=== PATIENT | female | born 1940 | race Caucasian/White ===

== ENCOUNTER 2018-04-28 09:06 | Day surgery (SDC) | payer OTHER, MEDICARE ==
[2018-04-28] MEDS ORDERED: BUPIVACAINE 0.25% PF 10 ML VIAL ONE (09:33)
[2018-04-28] MEDS ORDERED: CYCLOPENTOLATE 1% OPTH 2 ML ONE (09:33)
[2018-04-28] MEDS ORDERED: TETRACAINE HCL 0.5% 2ML OPTH ONE (09:33)
[2018-04-28] MEDS ORDERED: LIDOCAINE 2% MPF 5 ML VIAL ONE ×2 (09:33→10:53)
[2018-04-28] MEDS ORDERED: NA CHLORIDE 0.9% 500 ML ONE (09:33)
[2018-04-28] MEDS ORDERED: PHENYLEPHRINE 10% OPTH 5ML ONE (09:34)
[2018-04-28] MEDS ORDERED: BALANCED SALT IRRIG PLAIN 500 ML BTL IRR ONE (09:38)
[2018-04-28] MEDS ORDERED: EPINEPHRINE/PF 1 MG/ML AMP ONE ×2 (09:38→09:39)
[2018-04-28] MEDS ORDERED: NS 0.9% VIAL 10 ML ONE (09:38)
[2018-04-28] MEDS ORDERED: DUOVISC 1 KIT OPTH ONE (09:39)
[2018-04-28] MEDS ORDERED: MOXIFLOXACIN HCL 10 DROPS/ML **OR USE OPTH ONE (09:39)
[2018-04-28] MEDS ORDERED: CYCLOPENTOLATE 1% OPTH 2 ML OPTH ONE ×2 (09:42→09:47)
[2018-04-28] MEDS ORDERED: PHENYLEPHRINE 10% OPTH 5ML OPTH ONE ×2 (09:42→09:47)
[2018-04-28] MEDS ORDERED: PROPOFOL 200 MG/20 ML VIAL IV ONE (10:52)
[2018-04-28] MEDS ORDERED: FENTANYL CITR 100 MCG/2 ML ONE (10:52)
[2018-04-28] MEDS ORDERED: MIDAZOLAM HCL 2 MG/2 ML INJ ONE (10:53)
[2018-04-28] MEDS ORDERED: DEXAMETHASONE 10 MG/ML VIAL ONE (11:29)
[2018-04-28] MEDS ORDERED: ALBUTEROL INHALER 60 PUFF/8 GM IH ONE (11:29)
[2018-04-28] MEDS ORDERED: ONDANSETRON HCL 40 MG/20 ML VIAL ONE (11:30)
[2018-04-28] MEDS ORDERED: EPHEDRINE SULF 50 MG/10 ML SYR ONE (11:39)
--- NOTE | 2018-04-28 12:00 | P.BOP ---
Preoperative diagnosis: Nuclear sclerotic and cortical cataract OS Postoperative diagnosis: Same Primary procedure: Phacoemulsification with IOL OS Anesthesia: General Complications: None Implants: [id number] +24.5 Transferred to: Recovery Room Condition: Good
[2018-04-28] MEDS ORDERED: IPRATROPIUM BROM 0.5MG/2.5ML ONE (12:21)
[2018-04-28] MEDS ORDERED: ALBUTEROL 2.5 MG/3 ML NEB SOL ONE (12:21)
[2018-04-28] MEDS ORDERED: SUCCINYLCHOLINE 20 MG/ML (10 ML) IV ONE (13:36)
--- NOTE | 2018-04-28 22:18 | OP ---
Date of Procedure: 04/28/2018 Surgeon: Emma Kim MD Anesthesiologist: 1. Gsu Briscoe CRNA. 2. Cheng Brower M.D. Preoperative Diagnosis: Nuclear sclerotic and cortical cataract, left eye. Operation Performed: Phacoemulsification with intraocular lens implant, left eye. Anesthesia: General. Complications: None. Description Of Procedure: In the operating room the patient was prepped and draped in the usual sterile fashion for ophthalmic surgery. A lid speculum was placed in the left eye. Two paracentesis sites were made superiorly and inferiorly in the limbal cornea. Viscoat was placed in the anterior chamber and a crescent blade was used to make a corneal groove and tunnel, and a keratome was used to enter the anterior chamber. Provisc was placed in the anterior chamber and a 360 degree capsulotomy was performed with a cystitome. The lens was hydrodissected with BSS and rotated freely. The lens was removed with a stop and chop technique. A 4.44 phaco CDE was used to remove the lens. Residual cortex was removed with the irrigation and aspiration. Provisc was placed in the capsular bag. A ZCB00 +24.5 lens was placed in the capsular bag without complications. Irrigation and aspiration was used to remove residual viscoelastic. The paracentesis sites were hydrated with BSS. The wound and paracentesis sites were inspected and found to be watertight. Vigamox 0.07 cc was placed intracamerally at the end of the procedure. The eye was irrigated with balanced salt solution. The eye was patched with a soft cotton patch and Honeycutt metal shield. The patient was returned to day surgery in good condition. Comments: A 1:5000 epinephrine was placed in the eye prior to Viscoat and throughout the operation. The patient could not lie flat for the block and the surgery was performed under general anesthesia. Atrial Fibrillation was noted at the induction of anesthesia; however, since she is hemodynamically stable, anesthesia did not think it was necessary to cancel the case; she will see Cardiology this week. Discharge Instructions: Ms. Martinez is discharged to home in good condition. She is to follow up with Dr. Kim at 3 today and then in the a.m. VENUS/AFSANEH Voice ID: [id number] Report ID: [id number] MTDD
== END 2018-04-28 14:20 | disposition home or self-care (01) ==
LOC: OR 09:06
PROVIDERS: ATTEND Ophthalmology Retina Specialist
PROC: 08RK3JZ Replacement of Left Lens with Synthetic Substitute, Percutaneous Approach (ICD-10-PCS; principal; 2018-04-28 10:00)
DX: H25.12 Age-related nuclear cataract, left eye (principal); H25.012 Cortical age-related cataract, left eye; I10 Essential (primary) hypertension; K21.9 Gastro-esophageal reflux disease without esophagitis; G30.9 Alzheimer's disease, unspecified; F02.80 Dementia in other diseases classified elsewhere, unspecified severity, without behavioral disturbance, psychotic disturbance, mood disturbance, and anxiety; E07.9 Disorder of thyroid, unspecified
CPT/HCPCS: 36415; 84132; 94640; J0171; J0330; J1100; J2250; J2405; J2704; J3010

== ENCOUNTER 2018-04-29 20:18 | Inpatient (IN) | payer OTHER, MEDICARE ==
[2018-04-29] MEDS ORDERED: EPINEPHRINE INH 0.5 ML VIAL IH ONE (21:02)
[2018-04-29 21:26] LABS: Absolute Lymphocytes (CBC) 1.3 K/uL (0.7-4.9); Absolute Monocytes 1.2 K/uL (0.1-1.3); Absolute Neutrophil 10.2 K/uL (1.8-8.0); Basophils % 0.4 % (0-1.3); Eosinophils % 0.2 % (0-4.4); Lymphocytes % 10.1 % (15.3-44.8); MCH 25.6 pg (27.0-35.0); MCV 82.3 fL (80-100); MPV 7.6 fL (7.6-11.3); Monocytes % 9.6 % (3.3-12.3); RBC Red Blood Cell Count 5.47 M/uL (3.86-4.86)
--- NOTE | 2018-04-29 21:28 | RAD REPORT ---
EXAM DESCRIPTION: RAD - Chest Single View - 04/29/2018 9:16 pm CLINICAL HISTORY: COPD Chest pain. COMPARISON: Chest Single View dated 05/17/2016; Chest Single View dated 05/16/2016; Chest Single Vie w dated 10/29/2015; Chest Single View dated 10/26/2015 FINDINGS: Portable technique limits examination quality. The lungs are grossly clear. The heart is mildly prominent size. No displaced fractures. IMPRESSION: No acute intrathoracic process suspected.
[2018-04-29] MEDS ORDERED: LIDOCAINE VISCOUS 2% SOLN 15 ML UDC ONE (21:29)
[2018-04-29] MEDS ORDERED: MAGNE/ALUM HYDROXD 30 ML UCUP ONE (21:29)
[2018-04-29 21:30] LABS: Protime INR 1.03
[2018-04-29 22:17] LABS: Albumin 3.6 g/dL (3.4-5.0); Bilirubin Direct 0.2 mg/dL (0-0.2); Bilirubin Total 0.5 mg/dL (0.2-1.0); Magnesium 2.6 mg/dL (1.8-2.4); Potassium 3.6 mmol/L (3.5-5.1); Protein, Total 8.4 g/dL (6.4-8.2); Troponin (Emerg Dept Use Only) 1.15 ng/mL (0.0-0.045)
[2018-04-29 22:20] LABS: CKMB Creatine Kinase MB 10.4 ng/mL (0.3-3.6)
--- NOTE | 2018-04-29 22:57 | EDPHYS ---
Physician Documentation [facility] Name: Viki Martinez Age: 78 yrs Sex: Female : 1940 Arrival Date: 04/29/2018 Time: 20:19 Bed 7 Private MD: Travis Magallanes C ED Physician Monica Styles HPI: 04/29 20:50 This 78 yrs old Female presents to ER via Wheelchair with complaints of ma2 Breathing Difficulty. 20:50 The patient has shortness of breath at rest. Onset: The symptoms/episode began/occurred ma2 suddenly, gradually, 1 day(s) ago. The patient's shortness of breath has no apparent modifying factors. Severity of symptoms: At their worst the symptoms were severe in the emergency department the symptoms are unchanged. The patient has not experienced similar symptoms in the past. was intubated yesterday for cataract surgery, was found today by family cyanotic with saturation of 70, here in the ed has throat discomfort, cough and low saturations . Historical: - Allergies: 20:23 Sulfa (Sulfonamide Antibiotics); aj1 - PMHx: 20:23 Alzheimers; Hyperlipidemia; Hypertension; aj1 - Immunization history:: Flu vaccine is up to date. - Social history:: Smoking status: Patient/guardian denies using tobacco, Patient/guardian denies using alcohol, street drugs, The patient lives with family. - Ebola Screening: : Patient denies travel to an Ebola-affected area in the 21 days before illness onset. - Family history:: not pertinent. - Hospitalizations: : No recent hospitalization is reported. ROS: 20:50 Constitutional: Negative for fever, chills, and weight loss. ma2 20:50 ENT: Positive for sore throat, Negative for injury or acute deformity, foreign body sensation, hearing loss. 20:50 Respiratory: Positive for shortness of breath, Negative for dyspnea on exertion, orthopnea, pleurisy, acute changes. 20:50 All other systems are negative. Exam: 20:50 Constitutional: This is a well developed, well nourished patient who is awake, alert, ma2 and in no acute distress. Neck: Trachea midline, no thyromegaly or masses palpated, and no cervical lymphadenopathy. Supple, full range of motion without nuchal rigidity, or vertebral point tenderness. No Meningismus. Chest/axilla: Normal chest wall appearance and motion. Nontender with no deformity. No lesions are appreciated. Cardiovascular: Regular rate and rhythm with a normal S1 and S2. No gallops, murmurs, or rubs. Normal PMI, no JVD. No pulse deficits. Abdomen/GI: Soft, non-tender, with normal bowel sounds. No distension or tympany. No guarding or rebound. No evidence of tenderness throughout. Neuro: Awake and alert, GCS 15, oriented to person, place, time, and situation. Cranial nerves II-XII grossly intact. Motor strength 5/5 in all extremities. Sensory grossly intact. Cerebellar exam normal. Normal gait. Psych: Awake, alert, with orientation to person, place and time. Behavior, mood, and affect are within normal limits. 20:50 Respiratory: mild respiratory distress is noted, on 2 L NC, Breath sounds: are clear throughout. Vital Signs: 20:20 BP 130 / 79; Pulse 72; Resp 24; Temp 97.2; Pulse Ox 70% on R/A; Weight 129.27 kg (R); aj1 Height 5 ft. 6 in. (167.64 cm) (R); 20:22 Pulse Ox 85% on R/A; aj1 20:27 Pulse Ox 95% on 3 lpm NC; aj1 21:31 BP 134 / 90; Pulse 71; Resp 18; Pulse Ox 94% on 3 lpm NC; Pain 0/10; aa1 22:30 BP 126 / 89; Pulse 68; Resp 20; Pulse Ox 95% on 3 lpm NC; Pain 0/10; aa1 04/30 00:23 BP 127 / 72; Pulse 69; Resp 20; Temp 97.1; Pulse Ox 94% on 3 lpm NC; Pain 0/10; aa1 04/29 20:20 Body Mass Index 46.00 (129.27 kg, 167.64 cm) aj1 04/29 20:22 see triage note aj1 MDM: 20:30 Patient medically screened. ma2 20:52 Differential diagnosis: Anxiety Reaction asthma, Bronchitis Pulmonary Embolism. tn2 22:53 Data reviewed: vital signs. Data interpreted: Pulse oximetry: on room air is 95 %. pm1 Interpretation: normal. 22:53 Physician consultation: A Sona BURT was called at 22:50, was contacted at 22:53, pm1 regarding admission, patient's condition, and will see patient tomorrow, would like consultation with Cardiology consult, would like further tests performed, echocardiogram, would like medications started, Lovenox 100 mg daily. 04/29 20:49 Order name: Blood Culture Adult (2) ma2 04/29 20:49 Order name: BMP; Complete Time: 22:22 ma2 04/29 20:49 Order name: CBC with Diff; Complete Time: 21:43 ma2 04/29 20:49 Order name: Ckmb; Complete Time: 22:22 ma2 04/29 20:49 Order name: CPK; Complete Time: 22:22 ma2 04/29 20:49 Order name: D-Dimer; Complete Time: 21:43 ma2 04/29 20:49 Order name: XRAY CXR (1 view); Complete Time: 21:33 ma2 04/29 20:49 Order name: Hepatic Function; Complete Time: 22:22 ma2 04/29 20:49 Order name: Lipase; Complete Time: 22:22 ma2 04/29 20:49 Order name: Magnesium; Complete Time: 22:22 ma2 04/29 20:49 Order name: NT PRO-BNP; Complete Time: 22:22 ma2 04/29 20:49 Order name: PT-INR; Complete Time: 21:43 ma2 04/29 20:49 Order name: Ptt, Activated; Complete Time: 21:43 2 04/29 20:49 Order name: Troponin (emerg Dept Use Only); Complete Time: 22:22 ma2 04/29 20:49 Order name: EKG; Complete Time: 20:50 ma2 04/29 20:49 Order name: Cardiac monitoring; Complete Time: 20:54 ma2 04/29 20:49 Order name: EKG - Nurse/Tech; Complete Time: 20:54 ma2 04/29 20:49 Order name: IV Saline Lock; Complete Time: 21:15 2 04/29 20:49 Order name: Labs collected and sent; Complete Time: 21:15 ma2 04/29 20:49 Order name: O2 Per Protocol; Complete Time: 20:53 ma2 04/29 20:49 Order name: O2 Sat Monitoring; Complete Time: 20:53 ma2 04/29 21:42 Order name: CT Chest For PE Angio ma2 Administered Medications: 20:55 Drug: Racemic EPINPHrine 0.5 ml Route: Inhalation; aa1 21:33 Drug: GI Cocktail without - (Maalox Suspension 30 ml, Lidocaine Liquid 2 % 15 aa1 ml) Route: PO; 22:30 Follow up: Response: No adverse reaction; Marked relief of symptoms aa1 22:52 CANCELLED (Sona would like 100mg subq now): Lovenox 0.5 mg/kg Sub-Q once pm1 23:08 Drug: Lovenox 100 mg Route: Sub-Q; Site: right lower abdomen; aa1 04/30 00:22 Follow up: Response: No adverse reaction aa1 04/29 23:08 Drug: Aspirin 325 mg Route: PO; aa1 04/30 00:21 Follow up: Response: No adverse reaction aa1 Disposition: 04/29/18 22:56 Hospitalization ordered by Travis Magallanes for Inpatient Admission. Preliminary diagnosis is Non-ST elevation (NSTEMI) myocardial infarction. - Bed requested for Telemetry/MedSurg (Inpatient). - Status is Inpatient Admission. aa1 - Condition is Stable. - Problem is new. - Symptoms have improved. UTI on Admission? No Addendum: 05/12/2018 11:10 Co-signature as Attending Physician, Monica Styles MD. m a2 Signatures: Dispatcher [employer] EDMS Silke John RN RN aj1 Viki Quintanilla RN RN mw Mary Dobbs RN RN aa1 Mario Torres, UNIVERSITY MANAGER UNIVERSITY MANAGER pm1 Monica Styles MD MD tn2 Corrections: (The following items were deleted from the chart) 04/29 22:52 22:43 Lovenox 0.5 mg/kg Sub-Q once ordered. pm1 pm1 04/30 00:04 04/29 22:56 Hospitalization Ordered by A Sona BURT for Inpatient Admission. Preliminary mw diagnosis is Non-ST elevation (NSTEMI) myocardial infarction. Bed requested for Telemetry/MedSurg (Inpatient). Status is Inpatient Admission. Condition is Stable. Problem is new. Symptoms have improved. UTI on Admission? No. pm1 04/30 00:27 00:04 04/29/2018 22:56 Hospitalization Ordered by A Sona BURT for Inpatient Admission. aa1 Preliminary diagnosis is Non-ST elevation (NSTEMI) myocardial infarction. Bed requested for Telemetry/MedSurg (Inpatient). Status is Inpatient Admission. Condition is Stable. Problem is new. Symptoms have improved. UTI on Admission? No. mw
--- NOTE | 2018-04-29 22:57 | ER ---
Nurse's Notes [facility] Name: Viki Martinez Age: 78 yrs Sex: Female : 1940 Arrival Date: 04/29/2018 Time: 20:19 Bed 7 Private MD: Travis Magallanes C Diagnosis: Non-ST elevation (NSTEMI) myocardial infarction Presentation: 04/29 20:20 Presenting complaint: Child states: She had cataract surgery yesterday. She had AFib aj1 during surgery and her sats dropped into the 80's today at home she wasn't as alert as it usually is so we checked her oxygen saturation and it was in the 70's. Transition of care: patient was not received from another setting of care. Onset of symptoms was April 29, 2018. Risk Assessment: Do you want to hurt yourself or someone else? Patient reports no desire to harm self or others. Initial Sepsis Screen: Does the patient meet any 2 criteria? No. Patient's initial sepsis screen is negative. Does the patient have a suspected source of infection? Yes: Other: shortness of breath. Care prior to arrival: None. 20:20 Method Of Arrival: Wheelchair aj1 20:20 Acuity: ADIEL 2 aj1 20:37 Note Patient 70% on RA in triage, fingers noted to cool to the touch and purple. aj1 Patient taken back to room 7, pulse ox placed across forehead, room air O2 sat was 85% on room air at that time. Patient was placed on 3L nc, O2 sat was up to 95% on 3L nc. Dr. Styles at bedside. Triage Assessment: 20:20 General: Appears in no apparent distress. uncomfortable, Behavior is calm, cooperative, aj1 appropriate for age. Pain: Denies pain. Neuro: Level of Consciousness is awake, alert, confused, Patient has history of Alzheimers. Speech Family states patient's speech sounds more hoarse than normal. Cardiovascular: Patient's skin is warm and dry. Respiratory: Reports shortness of breath Airway is patent Respiratory effort is even, Respiratory pattern is regular, tachypnea Breath sounds are clear bilaterally. Onset: The symptoms/episode began/occurred just prior to arrival. Historical: - Allergies: 20:23 Sulfa (Sulfonamide Antibiotics); aj1 - PMHx: 20:23 Alzheimers; Hyperlipidemia; Hypertension; aj1 - Immunization history:: Flu vaccine is up to date. - Social history:: Smoking status: Patient/guardian denies using tobacco, Patient/guardian denies using alcohol, street drugs, The patient lives with family. - Ebola Screening: : Patient denies travel to an Ebola-affected area in the 21 days before illness onset. - Family history:: not pertinent. - Hospitalizations: : No recent hospitalization is reported. Screenin:45 Abuse screen: Denies threats or abuse. Denies injuries from another. Nutritional aa1 screening: No deficits noted. Tuberculosis screening: No symptoms or risk factors identified. Fall Risk None identified. Assessment: 20:45 General: Appears in no apparent distress. comfortable, obese, Behavior is calm, aa1 cooperative, appropriate for age. Pain: Denies pain. Neuro: Level of Consciousness is awake, alert, obeys commands, Oriented to person, place, pt has hx of Alzheimer's. Cardiovascular: Denies chest pain, palpitations, shortness of breath, Heart tones S1 S2 present Capillary refill < 3 seconds Clubbing of nail beds is absent JVD is absent Patient's skin is warm and dry. Rhythm is irregular. Respiratory: Airway is patent Respiratory effort is even, unlabored, Respiratory pattern is regular, symmetrical, Breath sounds are clear bilaterally. GI: No signs and/or symptoms were reported involving the gastrointestinal system. : No signs and/or symptoms were reported regarding the genitourinary system. EENT: Reports pain when swallowing. Derm: Skin is intact, is healthy with good turgor, Skin is pink, warm \T\ dry. Musculoskeletal: Circulation, motion, and sensation intact. Capillary refill < 3 seconds. 21:30 Reassessment: Patient appears in no apparent distress at this time. No changes from aa1 previously documented assessment. Patient and/or family updated on plan of care and expected duration. Pain level reassessed. Awaiting lab results. 22:30 Reassessment: Patient appears in no apparent distress at this time. No changes from aa1 previously documented assessment. Patient and/or family updated on plan of care and expected duration. Pain level reassessed. Awaiting provider reassessment. 04/30 00:01 Reassessment: Assisted patient to bedside commode. lp1 00:26 Reassessment: Patient appears in no apparent distress at this time. No changes from aa1 previously documented assessment. Report given to MELISSA Angel on 4th floor. Vital Signs: 04/29 20:20 BP 130 / 79; Pulse 72; Resp 24; Temp 97.2; Pulse Ox 70% on R/A; Weight 129.27 kg (R); aj1 Height 5 ft. 6 in. (167.64 cm) (R); 20:22 Pulse Ox 85% on R/A; aj1 20:27 Pulse Ox 95% on 3 lpm NC; aj1 21:31 BP 134 / 90; Pulse 71; Resp 18; Pulse Ox 94% on 3 lpm NC; Pain 0/10; aa1 22:30 BP 126 / 89; Pulse 68; Resp 20; Pulse Ox 95% on 3 lpm NC; Pain 0/10; aa1 04/30 00:23 BP 127 / 72; Pulse 69; Resp 20; Temp 97.1; Pulse Ox 94% on 3 lpm NC; Pain 0/10; aa1 04/29 20:20 Body Mass Index 46.00 (129.27 kg, 167.64 cm) aj1 04/29 20:22 see triage note aj1 ED Course: 20:19 Patient arrived in ED. ds1 20:19 Travis Magallanes MD is Private Physician. ds1 20:21 Triage completed. aj1 20:30 Monica Styles MD is Attending Physician. ma2 20:45 Oxygen administration via nasal cannula \T\ 3L/min. aa1 20:45 Patient has correct armband on for positive identification. Bed in low position. Call aa1 light in reach. analytical strategist on. Pulse ox on. NIBP on. 20:47 Mary Dobbs, MELISSA is Primary Nurse. aa1 20:55 Initial lab(s) drawn, by pr, sent to lab. First set of blood cultures drawn by me, EKG aa1 done, by ED staff, reviewed by Monica Styles MD. Inserted saline lock: 20 gauge in right antecubital area, using aseptic technique. Blood collected. 21:11 Second set of blood cultures drawn by me. aa1 21:15 X-ray completed. Portable x-ray completed in exam room. Patient tolerated procedure az well. 21:16 XRAY CXR (1 view) In Process Unspecified. EDMS 21:38 Notified ED physician of a critical lab result(s). d-dimer 547. fc 21:53 Mario Torres NP is PHCP. pm1 22:18 Notified Nurse Practitioner and/or Physician Manager [employer] of a critical lab result(s), fc ckmb of 10.4, trop 1.5. 22:56 Travis Magallanes MD is Hospitalizing Provider. pm1 04/30 00:22 No provider procedures requiring assistance completed. Patient admitted, IV remains in aa1 place. Administered Medications: 04/29 20:55 Drug: Racemic EPINPHrine 0.5 ml Route: Inhalation; aa1 21:33 Drug: GI Cocktail without - (Maalox Suspension 30 ml, Lidocaine Liquid 2 % 15 aa1 ml) Route: PO; 22:30 Follow up: Response: No adverse reaction; Marked relief of symptoms aa1 22:52 CANCELLED (Sona would like 100mg subq now): Lovenox 0.5 mg/kg Sub-Q once pm1 23:08 Drug: Lovenox 100 mg Route: Sub-Q; Site: right lower abdomen; aa1 04/30 00:22 Follow up: Response: No adverse reaction aa1 04/29 23:08 Drug: Aspirin 325 mg Route: PO; aa1 04/30 00:21 Follow up: Response: No adverse reaction aa1 Outcome: 04/29 22:56 Decision to Hospitalize by Provider. pm1 04/30 00:26 Admitted to Tele accompanied by tech, family with patient, via wheelchair, room 428, aa1 with oxygen, with chart, Report called to MELISSA Angel Condition: stable Discharge instructions given to patient, family, Instructed on the need for admit, Demonstrated understanding of instructions. 00:27 Patient left the ED. aa1 Signatures: Dispatcher [employer] EDMS Silke John RN RN aj1 Mary Dobbs RN RN aa1 Lili Rueda RN RN fc [place], Demi ds1 Germania Benitez RN RN lp1 Mario Torres, CHEMO RELIGION INSTRUCTOR pm1 Monica Styles MD MD ma2 Minna Boyle
[2018-04-29] MEDS ORDERED: ASPIRIN 325 MG TAB ONE (23:07)
[2018-04-29] MEDS ORDERED: ENOXAPARIN 100 MG/ML SYR SQ ONE (23:07)
[2018-04-30] MEDS ORDERED: ACETAMINOPHEN 500 MG TAB PO PRN (01:02)
[2018-04-30 04:57] LABS: Absolute Lymphocytes (CBC) 1.6 K/uL (0.7-4.9); Absolute Monocytes 1.1 K/uL (0.1-1.3); Basophils % 0.7 % (0-1.3); Eosinophils % 1.2 % (0-4.4); Hematocrit 42.5 % (36.0-45.0); Lymphocytes % 15.8 % (15.3-44.8); MCH 26.1 pg (27.0-35.0); MCV 80.8 fL (80-100); Monocytes % 11.1 % (3.3-12.3); RBC Red Blood Cell Count 5.26 M/uL (3.86-4.86)
[2018-04-30 05:09] LABS: Potassium 3.5 mmol/L (3.5-5.1)
--- NOTE | 2018-04-30 06:50 | EKG ---
Test Date: 2018-04-29 Test Time: 20:57:45 Weapons System Instrument Mechanic: ALAN MEASUREMENT RESULTS: Intervals: Rate: 69 VA: 190 QRSD: 92 QT: 434 QTc: 465 [place]: P: 29 VA: 190 QRS: 41 T: 88 INTERPRETIVE STATEMENTS: Sinus rhythm with premature supraventricular complexes ST & T wave abnormality, consider lateral ischemia Abnormal ECG Compared to ECG 05/17/2016 07:12:50 ST (T wave) deviation now present Possible ischemia now present Electronically Signed On 04-30-18 06:49:31 CDT by Tato Holland
[2018-04-30] MEDS: QUINIDINE PO SCH ×2 (09:00→20:13)
[2018-04-30] MEDS ORDERED: AZELASTINE NASAL SPRAY 30 ML NAS SCH (09:00)
[2018-04-30] MEDS ORDERED: BRIMONIDINE TARTRATE 0.15% 5 ML EACH EYE SCH (09:00)
[2018-04-30] MEDS ORDERED: UBIDECARENONE PO SCH (09:00)
[2018-04-30] MEDS: DOCOSAHEXANOIC AC/EPA 1000 MG PO SCH (09:00)
[2018-04-30] MEDS ORDERED: INFLUENZA VACCINE (for 3y+) 0.5 ML DOSE IMVAC ONE (09:00)
[2018-04-30] MEDS: CYANOCOBALAMIN 1,000 MCG TAB PO SCH (09:00)
[2018-04-30] MEDS ORDERED: HOME MED 1 EA UNK (Vitamin E [Vitamin E] 1,000 UNIT) PO SCH (09:00)
[2018-04-30] MEDS: DEXTROMETHORPHAN PO SCH ×2 (09:00→20:13)
[2018-04-30] MEDS: PANTOPRAZOLE 40MG TABLET PO SCH (09:00)
[2018-04-30] MEDS: DONEPEZIL HCL PO SCH (09:00)
[2018-04-30] MEDS: FUROSEMIDE 40 MG TABLET PO SCH ×2 (09:00→17:18)
[2018-04-30] MEDS: predniSONE 5 MG TAB PO SCH (09:00)
[2018-04-30] MEDS ORDERED: VIT E ACETATE PO SCH (09:00)
[2018-04-30] MEDS: MEMANTINE HCL PO SCH (09:00)
[2018-04-30] MEDS: LEVOTHYROXINE SOD 0.075 MG TAB PO SCH (09:00)
[2018-04-30] MEDS ORDERED: METOLAZONE 2.5 MG TABLET PO SCH (09:00)
[2018-04-30] MEDS: VITAMIN D 1000 UNIT TAB PO SCH (09:01)
[2018-04-30] MEDS: LACTOBACILLUS/ACIDOPHILUS TAB PO SCH (09:02)
[2018-04-30] MEDS: ASPIRIN EC 81 MG TAB PO SCH (09:02)
[2018-04-30] MEDS: POTASSIUM CL SA 10 MEQ TAB PO SCH ×2 (09:02→20:14)
[2018-04-30 09:49] LABS: Arterial Blood Carboxyhemoglob 1.4 % (0-1.5); Blood Gas Oxyhemoglobin 91.4 % (94-97); Blood O2 Saturation 93.5 % (92-98.5)
--- NOTE | 2018-04-30 10:45 | EKG ---
Test Date: 2018-04-30 Test Time: 07:20:25 Senior Field Service Engineer: LIN MEASUREMENT RESULTS: Intervals: Rate: 65 IL: 194 QRSD: 92 QT: 436 QTc: 453 [place]: P: 71 IL: 194 QRS: 25 T: 81 INTERPRETIVE STATEMENTS: Sinus rhythm with marked sinus arrhythmia Nonspecific ST and T wave abnormality Abnormal ECG Compared to ECG 04/29/2018 20:57:45 Atrial premature complex(es) no longer present Possible ischemia no longer present ST (T wave) deviation still present Electronically Signed On 04-30-18 10:45:08 CDT by Oziel Whitfield
--- NOTE | 2018-04-30 11:21 | RAD REPORT ---
EXAM DESCRIPTION: NM - Vent Perfusion VQ Scan - 04/30/2018 11:07 am CLINICAL HISTORY: Shortness of breath COMPARISON: 04/29/2018 chest x-ray TECHNIQUE: 19.6 Mci [id number] was administered by inhalation. First breath, equilibrium, and washout images lungs w ere taken. 6.6 millicuries Technetium-99 MAA was administered intravenously. Anterior, posterior, lateral and ob lique views of the lungs were taken. FINDINGS: The lungs demonstrate relatively homogeneous radiotracer activity on ventilation and perfu heriberto sequences. No mismatched segmental or lobar perfusion defects are seen. IMPRESSION: No evidence of a pulmonary embolus
[2018-04-30] MEDS: ARFORMOTEROL TARTRATE 15 MCG/2 ML VIAL.NEB NEB SCH ×2 (11:52→20:00)
--- NOTE | 2018-04-30 11:55 | P.CNS ---
Date of Consult: 04/30/18 Reason for Consult: Respiratory failure Chief Complaint: Altered mental status History of Present Illness: Patient is 78 years of age admitted with altered mental status hypoxic hypercapnic respiratory failure from started after eye surgery she has developed altered mental status and sign patient was seen my office own but could not undergo a sleep study has excessive daytime somnolence some snoring no prior history of obstructive airways disease patient is never smoked lower extremity edema Allergies No Known Allergies Allergy (Unverified 04/28/18 13:11) Home Medications: Amlodipine Besylate 5 mg PO [id number] 10/25/15 Dextromethorphan HBr/Quinidine [Nuedexta 20-10 mg Capsule] 1 cap PO BID Pantoprazole [Protonix Tab*] 40 mg PO DAILY #30 tab 11/02/15 predniSONE [Deltasone*] 5 mg PO DAILY 05/16/16 Azelastine [Astelin 137MCG/Metered [place]*] 1 sprays NS BID 04/23/18 Cholecalciferol (Vitamin D3) [Vitamin D3] 2,000 unit PO DAILY 04/23/18 Cyanocobalamin [Vitamin B-12*] 1,000 mcg PO DAILY 04/23/18 Fish Oil/Dha/Epa [Fish Oil 1,200 mg Fish Oil] 1 each PO DAILY 04/23/18 Furosemide 40 mg PO BID 04/23/18 L.acidoph,Paracasei, B.lactis [Probiotic] 1 each PO DAILY 04/23/18 Levocetirizine Dihydrochloride [Xyzal] 5 mg PO BEDTIME 04/23/18 Levothyroxine [Synthroid*] 75 mcg PO [id number] 04/23/18 Potassium Chloride [Klor-Con 10] 10 meq PO BID 04/23/18 Ubidecarenone/Vit E Acetate [Co Q-10 100 mg Softgel] 2 each PO DAILY 04/23/18 Vitamin E 1,000 unit PO DAILY 04/23/18 Brimonidine [Alphagan P 0.15%*] 2 drops EACH EYE BID 04/30/18 Memantine HCl/Donepezil HCl [Namzaric 28 mg-10 mg Capsule] 1 each PO DAILY 04/30 Travoprost [Travatan Z] 1 drop OPTH BEDTIME 04/30/18 metOLazone [Zaroxolyn*] 2.5 mg PO EVERY 7TH DAY 04/30/18 - Past Medical/Surgical History Diabetic: No -: htn -: HLD -: Mild Alz -: miladis knee replacements -: right rotatorcuff -: Hypertension -: Alzheimer's disease - Family History Sister Medical History: Heart disease, Hypertension, Cancer dad Medical History: Heart disease mom Medical History: Diabetes - Social History Smoking Status: Never smoker Alcohol use: No CD- Drugs: No Caffeine use: Yes Place of Residence: Home Review of Systems General: Weakness Respiratory: Shortness of Breath Cardiovascular: Edema Physical Examination Temp Pulse Resp BP Pulse Ox 97.2 F 66 20 153/83 H 91 04/30/18 08:00 04/30/18 09:06 04/30/18 08:00 04/30/18 09:06 04/30/18 08:00 General: Alert, Oriented x1 HEENT: Atraumatic Neck: Supple Respiratory: Clear to auscultation bilaterally, Diminished Cardiovascular: Normal S1 S2, Edema Gastrointestinal: Normal bowel sounds, Soft and benign Laboratory Data (last 24 hrs) 04/29/18 20:55: PT 12.1, INR 1.03, APTT 25.1 04/29/18 20:55: WBC 12.8 H, Hgb 14.0, Hct 45.0, Plt Count 269 04/29/18 20:55: Sodium 136, Potassium 3.6, BUN 33 H, Creatinine 2.00 H, Glucose 112 H, Magnesium 2.6 H, Total Bilirubin 0.5, AST 38 H, ALT 30, Alkaline Phosphatase 97, Lipase 208 - Problems (1) Respiratory failure Current Visit: Yes Status: Acute Plan: Patient is 78 years of age admitted with altered mental status she has hypoxic hypercapnic he has underlying either obstructive sleep apnea or obesity hyperventilation syndrome patient was seen my office last year but refused to have a sleep study done trial of BiPAP try and arrange for a portable home study which she does not need oxygen patient also has chronic renal insufficiency chest x-ray clear V/Q scan low probability for PE doubt there is pulmonary embolism changed to prophylactic dose of Lovenox chest x-rays clear patient is on Lasix trial of bronchodilators to exclude obstructive airways disease she will also need pulmonary function testing and a thyroid function test Qualifiers: Respiratory failure complication: hypercapnia
--- NOTE | 2018-04-30 13:30 | CON ---
History Of Present Illness: Mrs. Martinez is 78-year-old was brought to the hospital because of altered mental status. She had cataract surgery. I think there was a variety of anesthetics used first when she woke up and then there was general anesthesia. So, I imagine propofol was used, maybe some othe rs. The notes from that are not readily available. She went home in good condition. Had a followup visit later that afternoon in Dr. Kim's office April 28, seemed to be doing fine. T he next morning, her had extreme trouble waking her up. It took about 45 minutes when she wa s able to converse but she was more confused than usual and so later in the day, she became confused again and was brought to the emergency room and admitted. She is not having chest pain. She has a l ot of peripheral edema, periorbital edema. She is morbidly obese. She has a history of dementia, hi story of hypertension, obstructive lung disease or asthma, hypothyroidism, and she has marked edema. She takes furosemide, metolazone, memantine, brimonidine eye drops, travoprost eye drops, levothyrox ine, potassium chloride, prednisone, dextromethorphan, Protonix, and amlodipine. Physical Examination: General: The patient is alert, but very confused about things. She cannot give a cogent history. A ll of the historical elements came from her family. Vital Signs: She is 5 feet 6 inches, 285 pounds, morbidly obese. Body mass index 46. HEENT: Reveals mild ecchymosis around the left eye. Mild periorbital edema. Lungs: Reveal no crackles or wheeze. Heart: Reveals a regular rate and rhythm. I do not appreciate a murmur or gallop. Abdomen: Soft. Extremities: 2 to 3+ edema. Distal pulses not palpable, but probably from edema. Diagnostic Data: EKG shows sinus rhythm with PACs, nonspecific ST and T-wave abnormality. Laboratory Data: Reveals troponins of 1.15, 1.31, 1.37. This is a pattern very suggestive of some k ind of chronic injury going on to the heart and I am suspicious she has right heart failure causing t his. It is possible she has had a pulmonary embolus. It is also possible that her confusion is due to CO2 narcosis. We will get a stress test and echo. If those look normal, we should investigate wh ether she has had PE. She is fully anticoagulated, so we do not need to saunders on that. Her creatinin e is 2, so a CT angio would not be feasible, cardiac cath would be very high risk for her at this poi nt. She is not having chest pain, so I think trying to do a noninvasive workup, see what is going on . I suspect she has chronic sleep apnea, chronic hypoventilation and after anesthesia became more hy popneic and hypercapnic and that may have caused all the laboratory findings, all of the symptoms chip t we seen. We will do a cardiac cath and thus were clear that the family is in favor of it and there is a large territory of myocardium at risk based on a nuclear stress test. OZIEL Voice ID: [id number] Report ID: [id number]
--- NOTE | 2018-04-30 15:33 | RAD REPORT ---
EXAM DESCRIPTION: USExtrem Venous W Compress Bil04/30/2018 3:23 pm CLINICAL HISTORY: Bilateral leg swelling COMPARISON: none FINDINGS: The common femoral, superficial femoral, popliteal and posterior tibial veins bilaterally are compressible and demonstrate augmentation. Doppler demonstrates good flow. IMPRESSION: No evidence of deep venous thrombosis involving either lower extremity.
[2018-04-30] MEDS ORDERED: ENOXAPARIN 100 MG/ML SYR SQ SCH (17:00)
[2018-04-30] MEDS: ENOXAPARIN 30 MG/0.3 ML SQ SCH (17:19)
[2018-04-30] MEDS: CETIRIZINE HCL 5 MG TABLET PO SCH (20:13)
[2018-04-30] MEDS ORDERED: HALOPERIDOL LACT 5 MG/ML INJ IV PRN (22:18)
--- NOTE | 2018-05-01 04:13 | HP ---
Date of Admission: 04/30/2018 Chief Complaint: Cyanosis and shortness of breath. History Of Present Illness: This is a 78-year-old female patient who had cataract surgery by Dr. Mukund ferguson this week on Saturday and family was told that she had atrial fibrillation either during surgery or after surgery. Yesterday morning when the patient woke up in the morning, her saw that he r lips were cyanotic and later on she got better, and in the morning, she had hard time waking up wit h the cyanotic lips. In the afternoon, the patient's daughter who is a respiratory therapist checked her and she had cyanotic lips again. Her oxygen saturation at home was ranging anywhere from 50% to 70%. So yesterday evening, she was brought into emergency room after she was evaluated. She was ad mitted to the hospital. Allergies: ACCORDING TO PRIOR REPORTS SHE IS ALLERGIC TO SULFA. Medications: List reviewed. Review of Systems: Respiratory: As mentioned above. 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 All other systems reviewed and negative. Past Medical History: Significant for Alzheimer's disease; diverticulosis; hypertension; adrenal ins ufficiency, on chronic steroid therapy; hyperlipidemia; osteoarthritis at multiple sites; allergic rh initis. Past Surgical History: Shoulder surgery, cataract surgery, appendectomy, tonsillectomy, bilateral kn ee surgery. Family History: Significant for coronary artery disease, hypertension, hyperlipidemia. Social History: Negative for smoking and alcohol use. Physical Examination: Vital Signs: This morning oxygen saturation 94%, temperature 97.1, pulse 69, respiratory rate 20, bl ood pressure 127/72. Height 5 feet 6 inches, weight 285 pounds. General: Awake, alert, oriented, not in distress. HEENT: Head atraumatic, normocephalic. Conjunctivae nonerythematous. Sclerae white. Mouth, no thr ush or edema noted. Ears/Nose, no mass, lesion, discharge noted. Neck: Supple. No JVD, lymph nodes, bruit, thyromegaly noted. Lungs: Bilateral good equal air entry. Clear to auscultation. No rhonchi. No rales. Heart: Normal heart sounds, no murmur or gallop. Abdomen: Soft, bowel sounds normal. No guarding, rigidity, tenderness, mass, hepatosplenomegaly, dis tention, or bruit noted. Extremities: Shows bilateral grade 1 pedal edema. Skin: No rash, ulcer, cellulitis. Lymphatics: No lymph node enlargement in neck, supraclavicular, infraclavicular region. Neuro: No focal neurological deficit. Chest: Unremarkable. External Genitalia: Deferred. Rectal: Deferred. Laboratory Data: Yesterday white count 12.8, hemoglobin 14, platelets 269. This morning platelet 26 2, white count 9.8, hemoglobin 13.7. Yesterday sodium 136, potassium 3.6, chloride 93, bicarb 35, BU N 33, creatinine 2, glucose 112. Liver function tests unremarkable except SGOT 38, total CPK 582, MB 10.4, troponin 1.15 the first set, second set 1.31, and third set 1.37. Lipase 208. This morning, BUN 34, creatinine 1.90. EKG normal sinus rhythm. Chest x-ray, no acute cardiopulmonary changes. Impression: 1.Cyanosis. 2.Hypoxia. 3.Paroxysmal atrial fibrillation. 4.Rgr-TX-iisvqhnzx myocardial infarction. 5.Hypertension. 6.Hyperlipidemia. 7.Sleep apnea. 8.Osteoarthritis, multiple sites. 9.Allergic rhinitis. 10.Diverticulosis. 11.Alzheimer's disease. 12.Acute kidney injury. 13.Adrenal insufficiency. Plan: Admit the patient to hospital for further evaluation and management of this problem. The valente ent is appropriate for inpatient and is expected to spend 2 midnights in hospital. Home medications will be continued per order. We will give Lovenox per order. The patient is currently on oxygen. W e will continue that. We will have to evaluate her for home oxygen. Consult wire coating operator metal, Dr. Brayden henderson. I am concerned about her having significant sleep apnea problem, and upon further questioning, the patient's reports that about a year ago or so patient did see Dr. Hernandez. He wanted h er to do sleep study, but she could not go through the sleep study while patient was admitted to hosp [facility]. He could not do the sleep study, so she went back home and they have not followed up with Dr. Hernandez since that time. I strongly believe that if we do not find the other explanation, it is kamala y likely that her sleep apnea is probably very severe to cause hypoxia and cyanosis problem. One has to keep in mind about any possibility of pulmonary embolism because of renal insufficiency. We will not be able to do CT scan of the chest per PE protocol, so V/Q scan was ordered, but she is not able to go through this test as calibration technician tried to take her down and brought her back because she would not lie down flat. We will go ahead and order venous Doppler to see if there is any evidence of DVT or not. Get echo with Doppler. Consult Cardiology. Details and plan of treatment discussed with th e patient and her family members, that is, patient's and daughter who were present in room th is morning. JADYN/MODL Voice ID: [id number]
[2018-05-01] MEDS: AMLODIPINE 5 MG TAB PO SCH (06:56)
[2018-05-01] MEDS: LEVOTHYROXINE SOD 0.075 MG TAB PO SCH (06:57)
[2018-05-01] MEDS: ARFORMOTEROL TARTRATE 15 MCG/2 ML VIAL.NEB NEB SCH ×2 (08:35→20:58)
[2018-05-01] MEDS: COENZYME Q10- 200 MG CAP PO SCH (09:00)
[2018-05-01] MEDS: VITAMIN E 400 IU CAP PO SCH (09:00)
[2018-05-01] MEDS: MEMANTINE HCL PO SCH (09:15)
[2018-05-01] MEDS: QUINIDINE PO SCH ×2 (09:15→19:55)
[2018-05-01] MEDS: DONEPEZIL HCL PO SCH (09:15)
[2018-05-01] MEDS: DEXTROMETHORPHAN PO SCH ×2 (09:15→19:55)
[2018-05-01] MEDS: FUROSEMIDE 40 MG TABLET PO SCH ×2 (09:16→17:25)
[2018-05-01] MEDS: DOCOSAHEXANOIC AC/EPA 1000 MG PO SCH (09:16)
[2018-05-01] MEDS: predniSONE 5 MG TAB PO SCH (09:16)
[2018-05-01] MEDS: VITAMIN D 1000 UNIT TAB PO SCH (09:17)
[2018-05-01] MEDS: PANTOPRAZOLE 40MG TABLET PO SCH (09:17)
[2018-05-01] MEDS: LACTOBACILLUS/ACIDOPHILUS TAB PO SCH (09:17)
[2018-05-01] MEDS: ASPIRIN EC 81 MG TAB PO SCH (09:17)
[2018-05-01] MEDS: POTASSIUM CL SA 10 MEQ TAB PO SCH ×2 (09:17→19:54)
[2018-05-01] MEDS: CYANOCOBALAMIN 1,000 MCG TAB PO SCH (09:18)
[2018-05-01 11:15] LABS: Urine Appearance CLEAR; Urine Bilirubin NEGATIVE (NEG); Urine Blood NEGATIVE (NEG); Urine Color YELLOW; Urine Glucose NEGATIVE (NEG); Urine Protein NEGATIVE (NEG); Urine Urobilinogen 0.2 mg/dL (0.2-1.0)
--- NOTE | 2018-05-01 11:29 | P.PN ---
Subjective Date of Service: 05/01/18 Chief Complaint: Respiratory failure Subjective: Improving (Patient is doing much better more alert responsive tolerating BiPAP she has refused to have a sleep study done) Review of Systems General: Weakness Respiratory: Shortness of Breath Physical Examination - Vital Signs Temperature: 97.4 F Blood Pressure: 150/76 Pulse: 71 Respirations: 18 Pulse Ox (%): 94 - Physical Exam General: Alert, Oriented x2, Cooperative Neck: Supple Respiratory: Clear to auscultation bilaterally, Diminished Assessment & Plan - Problems (Diagnosis) (1) Respiratory failure Current Visit: Yes Status: Acute Plan: Patient has hypoxic hypercapnic respiratory failure I suspect from either sleep apnea or obesity hyperventilation syndrome refused to have sleep study done at fax in a prescription for an auto BiPAP to CPAP doubt com patient's family members are in agreement to by the may she patient has home oxygen at 2 L of nasal cannula oxygen to her BiPAP I wrote function tests is normal can be discharged home once the BiPAP is set up to follow up with me in 2 weeks Qualifiers: Respiratory failure complication: hypercapnia
[2018-05-01 11:30] LABS: Urine Microscopic Reflex NO UMIC
--- NOTE | 2018-05-01 13:16 | PN ---
Admitted on 04/29/2018 with altered mental status, elevated troponin. Dr. Whitfield saw the patient on 04/30/2018. There is a possibility that her symptoms are related to right-sided congestive heart derrek lure. She has a creatinine of 2.0. PE was suspected, but V/Q scan is negative. No symptoms overnig ht. Mental status unchanged. There is an echocardiogram and Lexiscan ordered for today. Depending what those show, we will proceed. I think we will only do a heart catheterization if her stress test shows a very large area of ischemia. I will discuss the case further with her primary care. JACKSON/AFSANEH Voice ID: [id number] Report ID: [id number]
[2018-05-01] MEDS: ENOXAPARIN 30 MG/0.3 ML SQ SCH (17:25)
[2018-05-01] MEDS: CETIRIZINE HCL 5 MG TABLET PO SCH (19:55)
[2018-05-01] MEDS: OPTH OPTH SCH ×2 (19:57→19:58)
[2018-05-01] MEDS: ALPHAGAN P 0.1% OPTH SCH (19:57)
[2018-05-01] MEDS: ASTELIN NAS SCH (19:58)
[2018-05-01] MEDS: TRAVATAN Z 0.004% OPTH SCH (19:58)
--- NOTE | 2018-05-02 00:09 | PN ---
Date of Progress Note: 05/01/2018 Subjective: The patient was seen this morning for followup. No new complaints or problems reported by her. This morning, she was sitting at bedside. Her and daughter were present. Last nigh t, the patient had lot of agitation problem and she did require Haldol. reports that Dr. Ruma quinones had ordered BiPAP for her and she kept it on for 1 hour at a time and she did use it for 2-3 ho urs altogether since it was ordered. does report that after she did use BiPAP, she was actua lly looking and feeling better, but she did not keep it on for any longer period of time to see more benefit. Objective: Vital Signs: Reviewed. HEENT: Unremarkable. Lungs: Clear to auscultation. No rhonchi or rales. Heart: Heart sounds normal. Abdomen: Soft. Bowel sounds normal. No guarding, rigidity, tenderness, or distention. Extremities: Leg edema present, unchanged from yesterday. Laboratory Data: The patient's V/Q scan done yesterday was negative for pulmonary embolism. Venous Doppler of leg was negative for DVT. Impression: 1.Hypoxia. 2.Chronic respiratory failure. 3.Obstructive sleep apnea. 4.Abnormal cardiac enzymes. Plan: The patient will have a stress test done tomorrow per die holder. Her echocardiogram was or dered yesterday and it is still pending. We will follow up on the results once it is available. Pul monary and Cardiology consultation is appreciated. I did talk to Dr. Hernandez from Pulmonary Service and I strongly believe that the reason for her hypoxia and cyanosis was her respiratory failure prob blanca. She has chronic respiratory failure on basis of blood gas and she may have obesity hypoventilat ion syndrome. She will benefit from BiPAP type of therapy and Dr. Hernandez will talk to family membe r about CPAP/BiPAP. I will see her tomorrow for followup. Continue current medical management. JADYN/MODL Voice ID: [id number] Report ID: [id number]
[2018-05-02] MEDS: LEVOTHYROXINE SOD 0.075 MG TAB PO SCH (06:55)
[2018-05-02] MEDS: AMLODIPINE 5 MG TAB PO SCH (06:55)
--- NOTE | 2018-05-02 07:13 | ECHO ---
HEIGHT: 5 ft 6 in WEIGHT: 285 lb 0 oz DATE OF STUDY: 05/01/[address]: Mario Torres NP 2-DIMENSIONAL: YES M.MODE: YES DOPPLER: YES COLOR FLOW: YES TDS: YES PORTABLE: NO DEFINITY: NO BUBBLE STUDY: NO DIAGNOSIS: NSTEMI CARDIAC HISTORY: CATHERIZATION: NO SURGERY: NO PROSTHETIC VALVE: NO PACEMAKER: NO MEASUREMENTS (cm) DIASTOLIC (NORMALS) SYSTOLIC (NORMALS) IVSd 1.1 (0.6-1.2) LA Diam 4.0 (1.9-4.0) LVEF 79% LVIDd 4.3 (3.5-5.7) LVIDs 2.3 (2.0-3.5) %FS 47% LVPWd 1.1 (0.6-1.2) Ao Diam 2.7 (2.0-3.7) 2 DIMENSIONAL ASSESSMENT: RIGHT ATRIUM: NORMAL LEFT ATRIUM: NORMAL RIGHT VENTRICLE: NORMAL LEFT VENTRICLE: NORMAL TRICUSPID VALVE: NORMAL MITRAL VALVE: MITRAL ANNULAR CALCIFICATION PULMONIC VALVE: NORMAL AORTIC VALVE: SCLEROSIS PERICARDIAL EFFUSION: NONE AORTIC ROOT: NORMAL LEFT VENTRICULAR WALL MOTION: NORMAL DOPPLER/COLOR FLOW: NORMAL COMMENTS: TECHNICALLY DIFFICULT STUDY. GROSSLY NORMAL LEFT VENTRICULAR EJECTION FRACTION AND SIZE. MITRAL ANNULAR CALCIFICATION. AORTIC SCLEROSIS. TECHNOLOGIST: Pedro LOCKHART
[2018-05-02] MEDS ORDERED: REGADENOSON 0.4 MG/5 ML SYR IV ONE (07:30)
[2018-05-02] MEDS: ARFORMOTEROL TARTRATE 15 MCG/2 ML VIAL.NEB NEB SCH ×2 (08:20→20:03)
[2018-05-02 08:54] LABS: Absolute Lymphocytes (CBC) 1.5 K/uL (0.7-4.9); Absolute Neutrophil 5.1 K/uL (1.8-8.0); Basophils % 0.9 % (0-1.3); Eosinophils % 3.1 % (0-4.4); Hematocrit 45.5 % (36.0-45.0); Lymphocytes % 19.2 % (15.3-44.8); MCH 25.8 pg (27.0-35.0); MCV 80.4 fL (80-100); Monocytes % 13.1 % (3.3-12.3); RBC Red Blood Cell Count 5.66 M/uL (3.86-4.86)
[2018-05-02] MEDS: ALPHAGAN P 0.1% OPTH SCH ×2 (09:00→20:45)
[2018-05-02] MEDS: OPTH OPTH SCH ×3 (09:00→20:45)
[2018-05-02] MEDS: ASTELIN NAS SCH ×2 (09:00→20:44)
[2018-05-02 09:07] LABS: Magnesium 2.5 mg/dL (1.8-2.4); Potassium 3.1 mmol/L (3.5-5.1)
[2018-05-02] MEDS: FUROSEMIDE 40 MG TABLET PO SCH ×2 (10:44→17:47)
[2018-05-02] MEDS: POTASSIUM CL SA 10 MEQ TAB PO SCH ×2 (10:44→21:03)
[2018-05-02] MEDS: DOCOSAHEXANOIC AC/EPA 1000 MG PO SCH (10:45)
[2018-05-02] MEDS: CYANOCOBALAMIN 1,000 MCG TAB PO SCH (10:45)
[2018-05-02] MEDS: VITAMIN E 400 IU CAP PO SCH (10:45)
[2018-05-02] MEDS: ASPIRIN EC 81 MG TAB PO SCH (10:46)
[2018-05-02] MEDS: LACTOBACILLUS/ACIDOPHILUS TAB PO SCH (10:46)
[2018-05-02] MEDS: QUINIDINE PO SCH ×2 (10:46→21:03)
[2018-05-02] MEDS: DEXTROMETHORPHAN PO SCH ×2 (10:46→21:03)
[2018-05-02] MEDS: VITAMIN D 1000 UNIT TAB PO SCH (10:46)
[2018-05-02] MEDS: PANTOPRAZOLE 40MG TABLET PO SCH (10:46)
[2018-05-02] MEDS: predniSONE 5 MG TAB PO SCH (10:47)
[2018-05-02] MEDS: DONEPEZIL HCL PO SCH (10:47)
[2018-05-02] MEDS: COENZYME Q10- 200 MG CAP PO SCH (10:47)
[2018-05-02] MEDS: MEMANTINE HCL PO SCH (10:47)
[2018-05-02] MEDS ORDERED: ENOXAPARIN 40 MG/0.4 ML SQ SCH (17:00)
--- NOTE | 2018-05-02 19:04 | P.PN ---
Subjective Date of Service: 05/02/18 Chief Complaint: Respiratory failure Subjective: Improving (Patient is tolerating BiPAP an auto BiPAP will be delivered to her home tomorrow patient is very hypoxic on BiPAP off oxygen he probably has underlying diastolic congestive heart failure and has significant lower extremity edema) Review of Systems is unable to be obtained Physical Examination - Vital Signs Temperature: 97.0 F Blood Pressure: 130/70 Pulse: 73 Respirations: 22 Pulse Ox (%): 93 - Physical Exam General: Unresponsive Neck: Supple Respiratory: Clear to auscultation bilaterally Cardiovascular: Regular rate/rhythm, Normal S1 S2, Edema (Significant edema) Assessment & Plan - Problems (Diagnosis) (1) Respiratory failure Current Visit: Yes Status: Acute Plan: Patient admitted with hypoxic hypercapnic respiratory failure phases to have a sleep study done of order auto BiPAP which will be delivered tomorrow to our house Qualifiers: Respiratory failure complication: hypercapnia (2) Diastolic dysfunction Current Visit: Yes Status: Acute Plan: Patient probably has underlying significant stable diastolic dysfunction she also has although this factors in addition to lower extremity edema hypoxemia and patient is on diuretics patient experiences significant desaturation on BiPAP renal function is improving elevated troponins left ventricular function is normal blood pressure stable patient will qualify for home O2 with BiPAP
[2018-05-02] MEDS: TRAVATAN Z 0.004% OPTH SCH (20:44)
[2018-05-02] MEDS: CETIRIZINE HCL 5 MG TABLET PO SCH (21:04)
--- NOTE | 2018-05-02 22:05 | PN ---
Date of Progress Note: 05/02/2018 Subjective: The patient was seen this morning for followup. No new complaints or problems reported by the patient. She was lying in a recliner. Her daughters were present at bedside. She is having a hard time tolerating BiPAP, so she has not been using it, but Dr. Hernandez suggested BiPAP for home use, and family has ordered that and they are expecting to get it tomorrow. Objective: Vital Signs: Reviewed. HEENT: Unremarkable. Lungs: Clear to auscultation. No rhonchi. No rales. Heart: Sounds normal. Abdomen: Soft. Bowel sounds normal. No guarding, rigidity, tenderness, or distention. Extremities: Leg edema unchanged. Laboratory Data: Echocardiogram shows normal ejection fraction, unremarkable echo. Impression: 1.Yec-YC-fjqidmimr myocardial infarction. 2.Severe obstructive sleep apnea. 3.Hypertension. 4.Alzheimer disease. Plan: We will go ahead and continue current medications. We will continue to follow with cardiology and pulmonary service. The patient was scheduled to have stress test today, we will follow up on at. I did talk to Dr. Hernandez and he informed me that BiPAP will be delivered tomorrow and after that the patient can be discharged to go home. I will see her tomorrow for followup. JADYN/MODL Voice ID: [id number] Report ID: [id number]
[2018-05-03] MEDS: LEVOTHYROXINE SOD 0.075 MG TAB PO SCH (05:38)
[2018-05-03] MEDS: AMLODIPINE 5 MG TAB PO SCH (05:39)
[2018-05-03] MEDS: ARFORMOTEROL TARTRATE 15 MCG/2 ML VIAL.NEB NEB SCH (08:00)
[2018-05-03] MEDS ORDERED: POTASSIUM CL SA 10 MEQ TAB PO ONE (08:25)
[2018-05-03] MEDS: ALPHAGAN P 0.1% OPTH SCH (09:00)
[2018-05-03] MEDS: ASTELIN NAS SCH (09:00)
[2018-05-03] MEDS: OPTH OPTH SCH (09:00)
[2018-05-03] MEDS: PANTOPRAZOLE 40MG TABLET PO SCH (09:52)
[2018-05-03] MEDS: LACTOBACILLUS/ACIDOPHILUS TAB PO SCH (09:52)
[2018-05-03] MEDS: VITAMIN D 1000 UNIT TAB PO SCH (09:52)
[2018-05-03] MEDS: predniSONE 5 MG TAB PO SCH (09:52)
[2018-05-03] MEDS: CYANOCOBALAMIN 1,000 MCG TAB PO SCH (09:52)
[2018-05-03] MEDS: FUROSEMIDE 40 MG TABLET PO SCH (09:52)
[2018-05-03] MEDS: ASPIRIN EC 81 MG TAB PO SCH (09:52)
[2018-05-03] MEDS: DOCOSAHEXANOIC AC/EPA 1000 MG PO SCH (09:52)
[2018-05-03] MEDS: POTASSIUM CL SA 10 MEQ TAB PO SCH (09:52)
[2018-05-03] MEDS: DEXTROMETHORPHAN PO SCH (09:53)
[2018-05-03] MEDS: QUINIDINE PO SCH (09:53)
[2018-05-03] MEDS: MEMANTINE HCL PO SCH (09:54)
[2018-05-03] MEDS: DONEPEZIL HCL PO SCH (09:54)
[2018-05-03] MEDS: VITAMIN E 400 IU CAP PO SCH (09:54)
[2018-05-03] MEDS: COENZYME Q10- 200 MG CAP PO SCH (09:54)
[2018-05-03] MEDS ORDERED: INFLUENZA VACCINE (for 3y+) 0.5 ML DOSE IMVAC ONE (10:00)
--- NOTE | 2018-05-05 07:40 | DS ---
Date of Discharge: 05/03/2018 Disposition: Discharged to go home. Physical Examination: HEENT: Unremarkable. Lungs: Clear to auscultation. Heart: Sounds normal. Abdomen: Soft. Bowel sounds normal. No guarding, rigidity, tenderness, or distention. Extremities: Edema remains unchanged. Hospital Course: A 78-year-old female patient came into emergency room with complaints of shortness of breath and cyanosis. Please see dictated H and P for more information. The patient had significa nt hypoxia problem with cyanosis at home with oxygen saturation anywhere from 50% to 70% as recorded by her daughter who is a respiratory therapist and she was brought into emergency room after she was evaluated in the ER and she was admitted to hospital. I was concerned about possibility of sleep stacker attendant ea causing all these problems. In emergency room, her chest x-ray was negative for any acute cardiop ulmonary changes. Her renal function normal when she first came in with creatinine of 2, so we were not able to do CT scan of the chest per PE protocol, but day after admission, we did obtain a V/Q sca n, which was low probability and PE was ruled out. Clinically also, we were not concerned about this being pulmonary embolism. Venous Doppler of leg was negative for DVT. Her cardiac enzymes were abn ormal and Cardiology consultation was obtained from Dr. Holland/Dr. Whitfield and Pulmonary consultation was obtained from Dr. Hernandez. Echocardiogram was done which showed normal ejection fraction and u nremarkable echocardiogram. Stress test was ordered, but because of technical difficulty, the patien t was not able to get the stress test done as she could not stay in certain position, which was requi red for the imaging of the stress test and that is why stress test was not done. Dr. Hernandez ordere d arterial blood gas and that did show CO2 retention. What we believe is patient has severe obstruct judie sleep apnea and that is underlying cause for her hypoxia and cyanosis problem. Dr. Hernandez did try to get a sleep study done about a year ago on outpatient basis, but the patient was not able to g o through the sleep study, so what he has done is that after talking to the patient's family and the patient, he has ordered BiPAP for patient and BiPAP was delivered today at home and he has also made arrangements for patient to have home oxygen. Once all these arrangements completed, the patient was discharged to go home. At the hospital, she was not able to use BiPAP for more than 30 minutes at a time or so and every time she did use it, she felt better. 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 Laboratory Data: The patient's labs and investigations done during this hospitalization. Initial wh ite count 12.8, hemoglobin 14, platelets 269. Last white count on 05/02/2018 was 7.9, hemoglobin 14. 6, platelets 271. Her blood gas, pH 7.30, pCO2 72.5, pO2 77.4 on 32% FiO2 and saturation was 93.5%. Her initial chemistry; sodium 136, potassium 3.6, chloride 93, bicarb 35, BUN 33, creatinine 2, gluc ose 112. Liver function tests unremarkable. Troponin 1.15, highest troponin 1.37. Last BUN 34, cre atinine 1.30 on 05/02/2018 with potassium 3.1. Discharge Medications And Instructions: 1.Continue all prior home medications. 2.Take aspirin 81 mg p.o. daily with food. 3.Follow up at my office in 2 weeks. 4.Follow up with Dr. Hernandez in 3 weeks. 5[address]Follow with Dr. Holland in 2-3 weeks. 6.Use home oxygen all the time and use BiPAP as prescribed by Dr. Hernandez while sleeping which is d uring daytime and nighttime. Discharge Diagnoses: 1.Respiratory failure, chronic, with acute exacerbation. 2.Paroxysmal atrial fibrillation. 3.Hew-AA-kyqkprsns myocardial infarction. 4.Alzheimer disease. 5.Acute kidney injury. 6.Hypertension. 7.Hyperlipidemia. 8.Obstructive sleep apnea. 9.Osteoarthritis, multiple sites. 10.Allergic rhinitis. 11.Diverticulosis. 12.Adrenal insufficiency. JADYN/MODL Voice ID: [id number] Report ID: [id number]
== END 2018-05-03 15:17 | disposition home health service (06) | DRG 280 ==
LOC: ER 20:18 → ERHOLD 22:59 → 4TH 04-30 00:23
PROVIDERS: ADMIT Internal Medicine; ATTEND Internal Medicine
DX: I21.4 Non-ST elevation (NSTEMI) myocardial infarction (principal); J96.21 Acute and chronic respiratory failure with hypoxia; J96.22 Acute and chronic respiratory failure with hypercapnia; N17.9 Acute kidney failure, unspecified; E27.40 Unspecified adrenocortical insufficiency; Z68.42 Body mass index [BMI] 45.0-49.9, adult; I48.0 Paroxysmal atrial fibrillation; G30.9 Alzheimer's disease, unspecified; F02.80 Dementia in other diseases classified elsewhere, unspecified severity, without behavioral disturbance, psychotic disturbance, mood disturbance, and anxiety; E78.5 Hyperlipidemia, unspecified; G47.33 Obstructive sleep apnea (adult) (pediatric); M19.90 Unspecified osteoarthritis, unspecified site; J30.9 Allergic rhinitis, unspecified; K57.90 Diverticulosis of intestine, part unspecified, without perforation or abscess without bleeding; Z96.653 Presence of artificial knee joint, bilateral; E66.01 Morbid (severe) obesity due to excess calories
CPT/HCPCS: 36415; 71045; 78582; 80048; 80061; 80076; 81003; 82550; 82553; 82805; 83690; 83735; 83880; 84132; 84443; 84484; 85025; 85379; 85610; 85730; 87040; 87077; 87086; 87088; 87186; 93005; 93306; 93970; 94640; 94660; 94760; 96372; 99285; A9540; A9558; G0008; J0171; J0330; J1100; J1630; J1650; J2250; J2405; J2785; J3010; J7512; J7605; Q2035

== ENCOUNTER 2019-12-04 23:52 | Inpatient (IN) | payer OTHER, MEDICARE ==
[2019-12-05 00:07] LABS: Arterial Blood Carboxyhemoglob 0.8 % (0-1.5); Blood Gas Oxyhemoglobin 90.4 % (94-97); Blood O2 Saturation 91.9 % (92-98.5)
[2019-12-05 00:28] LABS: Absolute Lymphocytes (CBC) 0.9 K/uL (0.7-4.9); Basophils % 0.6 % (0-1.3); Hematocrit 48.6 % (36.0-45.0); Lymphocytes % 6.7 % (15.3-44.8); MPV 8.4 fL (7.6-11.3); RBC Red Blood Cell Count 5.71 M/uL (3.86-4.86)
[2019-12-05 00:36] LABS: Protime INR 1.13
[2019-12-05 00:51] LABS: Urine Appearance TURBID; Urine Blood 3+ (NEG); Urine Color DK YELLOW; Urine Glucose TRACE (NEG); Urine Protein 3+ (NEG); Urine Specific Gravity >=1.030 (1.005-1.030); Urine pH 5.5 (5.0-7.0)
[2019-12-05 00:59] LABS: Urine Bilirubin NEGATIVE (NEG); Urine Microscopic Reflex ORDER UMIC
[2019-12-05 01:01] LABS: Albumin 3.4 g/dL (3.4-5.0); Bilirubin Direct 0.3 mg/dL (0-0.2); Magnesium 2.4 mg/dL (1.8-2.4); Potassium 3.5 mmol/L (3.5-5.1); Protein, Total 8.2 g/dL (6.4-8.2)
[2019-12-05 01:03] LABS: Troponin (Emerg Dept Use Only) 1.47 ng/mL (0.0-0.045)
[2019-12-05 01:08] LABS: Blood Morphology Comment NOT SEEN (NOT SEEN); Platelet Estimate ADEQ
[2019-12-05 01:34] LABS: Urine Amorphous Sediment 3+ /HPF (NONE SEEN); Urine Bacteria >50 /HPF (<20); Urine Coarse Granular Casts 0-5 /LPF (NONE SEEN); Urine Culture Reflex Order REFLEXED; Urine Mucus 2+ /HPF (NONE SEEN); Urine RBC 20-50 /HPF (NONE SEEN)
[2019-12-05] MEDS ORDERED: ENOXAPARIN 100 MG/ML SYR SQ ONE (02:49)
[2019-12-05] MEDS ORDERED: PIPER/TAZO/NS 3.375gm 3.375 GM/100 ML BAG ONE (02:49)
--- NOTE | 2019-12-05 02:55 | EDPHYS ---
Physician Documentation [facility] Name: Viki Martinez Age: 79 yrs Sex: Female : 1940 Arrival Date: 12/04/2019 Time: 23:53 Bed 4 Private MD: ED Physician Delbert Kaufman HPI: 12/04 00:10 This 79 yrs old Female presents to ER via EMS with complaints of Syncope. cp 00:10 The patient has experienced syncope, became unresponsive. Onset: The symptoms/episode cp began/occurred just prior to arrival. Duration: This was a single episode, that lasted an unknown period of time. Context: the episode(s) was witnessed, by a significant other, , occurred at home, occurred while the patient was sitting, Just prior to the episode the patient experienced no apparent symptoms. Associated injury: The patient did not suffer any apparent associated injury. Associated signs and symptoms: Pertinent positives: combativeness, confusion, Pertinent negatives: abdominal pain, chest pain, seizure. Current symptoms: confusion. Historical: - Allergies: 00:00 Sulfa (Sulfonamide Antibiotics); lp1 - Home Meds: 00:56 Alphagan P 0.1 % ophthalmic drop 1 drop twice a day [Active]; Travatan Z 0.004 % lp1 ophthalmic drop 1 drop nightly [Active]; aspirin 81 mg Oral TbEC 1 tab once daily [Active]; spironolactone 25 mg Oral tab 2 tabs once daily [Active]; Namzaric 28-10 mg oral CSpX 1 cap once daily [Active]; prednisone 5 mg Oral tab once daily [Active]; levothyroxine 75 mcg tab 1 tab once daily [Active]; Protonix 40 mg Oral TbEC 1 tab once daily [Active]; acetazolamide 125 mg Oral tab once daily [Active]; metolazone 2.5 mg oral tab 1 tab [Active]; cetirizine 10 mg oral tab 1 tab once daily [Active]; - PMHx: 00:00 Alzheimers; Hyperlipidemia; Hypertension; lp1 - PSHx: 00:00 Knee surgery; Rotator cuff repair; lp1 - Immunization history:: Adult Immunizations up to date. - Social history:: Smoking status: Patient denies any tobacco usage or history of. ROS: 00:15 Constitutional: Negative for fever, poor PO intake. cp 00:15 Cardiovascular: Negative for chest pain. 00:15 Respiratory: Negative for cough. 00:15 Abdomen/GI: Negative for abdominal pain, vomiting, diarrhea, constipation. 00:15 Neuro: Positive for altered mental status, syncope. 00:15 All other systems are negative. 04:32 Eyes: Negative for injury, pain, redness, and discharge. pkl Exam: 00:00 ECG was reviewed by the Attending Physician. cp 00:15 Constitutional: The patient appears alert, awake, non-diaphoretic, non-toxic, well cp developed, well nourished, obese, in obvious distress, mildly distressed. 00:15 Head/Face: Normocephalic, atraumatic. cp 00:15 Eyes: Periorbital structures: appear normal, Pupils: equal, round, and reactive to light and accomodation, Extraocular movements: intact throughout, Conjunctiva: normal, no exudate, no injection, Sclera: no appreciated abnormality, Lids and lashes: appear normal, bilaterally. 00:15 ENT: External ear(s): are unremarkable, Nose: is normal, Mouth: Lips: moist, Oral mucosa: moist, Posterior pharynx: is normal, airway is patent. 00:15 Neck: ROM/movement: is normal, is supple, without pain, no range of motions limitations, no nuchal rigidity. 00:15 Chest/axilla: Inspection: normal, Palpation: is normal, no crepitus, no tenderness. 00:15 Cardiovascular: Rate: normal, Rhythm: regular, Edema: is not appreciated, JVD: is not appreciated. 00:15 Respiratory: mild respiratory distress is noted, Respirations: labored breathing, that is mild, shallow respirations, that is mild, Breath sounds: decreased breath sounds, that are moderate, throughout, stridor, is not appreciated. 00:15 Abdomen/GI: Inspection: obese Palpation: abdomen is soft and non-tender, in all quadrants. 00:15 Back: pain, is absent, ROM is normal. 00:15 Skin: no rash present. 00:15 Neuro: Orientation: to person, Mentation: confused, Motor: moves all fours, strength is normal. Vital Signs: 12/03 23:50 Pulse Ox 80% on R/A; Weight 104.33 kg (R); lp1 23:50 Pulse Ox 86% on 4 lpm NC; lp1 23:53 BP 148 / 119; Pulse 86; Resp 24; Temp 97.2; Pulse Ox 84% on R/A; ea 12/04 01:51 BP 189 / 170; Pulse 76; Resp 22; Pulse Ox 88% on Venturi mask; ea 02:13 Pulse 90; Resp 20; Pulse Ox 92% ; ea 02:30 BP 180 / 94 (man/reg); Pulse 76; Resp 20; Pulse Ox 91% on Venturi mask; ea 12/03 23:53 pt placed on 4 L of O2 per nasal cannula per provider ea 12/04 01:51 Pt is removing venturi mask and is attempting to remove BP cuff when it goes off ea MDM: 00:07 Patient medically screened. 02:36 Data reviewed: vital signs, nurses notes, lab test result(s), EKG, radiologic studies, pkl CT scan, plain films. 12/03 23:59 Order name: Basic Metabolic Panel; Complete Time: 01:05 12/04 01:05 Interpretation: Normal except: CO2 20; GLUC 147; BUN 33; CRE 1.75; GFR 28. 12/03 23:59 Order name: CBC with Diff; Complete Time: 01:10 12/04 01:08 Interpretation: Normal except: WBC 13.4; RBC 5.71; HGB 15.5; HCT 48.6; MCV 85.3; MCHC cp 31.8; TO% 87.2; NEUT A 11.7; LYM% 6.7. 12/03 23:59 Order name: LFT's; Complete Time: 01:05 cp 12/04 01:05 Interpretation: Normal except: BILID 0.3; GLOB 4.8; A/G 0.7. 12/03 23:59 Order name: Magnesium; Complete Time: 01:05 cp 12/03 23:59 Order name: NT PRO-BNP; Complete Time: 01:05 cp 12/04 01:06 Interpretation: Abnormal: NT PRO-BNP 6798. 12/03 23:59 Order name: PT-INR; Complete Time: 00:39 cp 12/04 01:08 Interpretation: Abnormal: PT 13.3. 12/03 23:59 Order name: Troponin (emerg Dept Use Only); Complete Time: 01:05 cp 12/04 01:05 Interpretation: Abnormal: TROPED 1.47. cp 12/03 23:59 Order name: Blood Culture Adult (2) cp 12/04 00:08 Order name: ABG Arterial Blood Gas; Complete Time: 00:19 EDMS 12/04 00:19 Interpretation: Normal except: ABGPH 7.34; ABGPO2 70.7; ABGHCO3 19.8; ABGSO2 91.9; cp [id number] 90.4. 12/04 00:08 Order name: Lactate cp 12/04 00:08 Order name: Procalcitonin; Complete Time: 01:16 cp 12/04 00:22 Order name: Glucose, Ancillary Testing; Complete Time: 00:39 EDMS 12/04 00:40 Interpretation: Abnormal: GLUC,ANCIL 151. cp 12/03 23:59 Order name: XRAY Chest (1 view) cp 12/04 00:08 Order name: CT Head Brain wo Cont cp 12/04 00:36 Order name: Urinalysis; Complete Time: 02:19 EDMS 12/04 01:11 Interpretation: Normal except: UBLD 3+; UPROT 3+. cp 12/04 00:56 Order name: RC 02 MASK EDMS 12/04 00:56 Order name: RC O2 MASK EDMS 12/04 01:01 Order name: Urine Microscopic Only; Complete Time: 02:19 EDMS 12/04 01:08 Order name: Manual Differential; Complete Time: 01:10 EDMS 12/04 01:10 Interpretation: Normal except: SEGS 87; LYM 8. cp 12/04 01:15 Order name: CT Chest Wo Con pkl 12/04 01:23 Order name: D-Dimer; Complete Time: 02:19 pkl 12/04 01:30 Order name: US Extremity Venous W Compression Sage pkl 12/04 01:37 Order name: Urine Culture EDMS 12/04 02:21 Order name: COVID-19 pkl 12/04 02:21 Order name: Flu; Complete Time: 04:32 pkl 12/04 02:21 Order name: Strep; Complete Time: 04:32 pkl 12/04 08:35 Order name: Troponin I EDMS 12/03 23:59 Order name: EKG; Complete Time: 00:04 cp 12/03 23:59 Order name: Cardiac monitoring; Complete Time: 00:01 cp 12/03 23:59 Order name: EKG - Nurse/Tech; Complete Time: 00:01 cp 12/03 23:59 Order name: IV Saline Lock; Complete Time: 00:10 cp 12/03 23:59 Order name: Labs collected and sent; Complete Time: 00:32 cp 12/03 23:59 Order name: O2 Per Protocol; Complete Time: 00:01 cp 12/03 23:59 Order name: O2 Sat Monitoring; Complete Time: 00:01 cp 12/04 00:08 Order name: Urine Dipstick-Ancillary (obtain specimen); Complete Time: 03:01 cp 12/04 00:31 Order name: Straight Cath - Urine; Complete Time: 00:31 ea 12/04 02:21 Order name: Droplet/Contact Precautions; Complete Time: 02:32 pkl EC:00 Rate is 86 beats/min. OR interval is normal. QRS interval is prolonged at 106 msec. QT cp interval is normal. T waves are Inverted in leads III, aVF. Interpreted by me. Reviewed by me. Administered Medications: 02:59 Drug: Zosyn 3.375 grams Route: IVPB; Infused Over: 60 mins; Site: left antecubital; ea 04:17 Follow up: Response: No adverse reaction; IV Status: Completed infusion; IV Intake: ea 100ml 03:00 Drug: Lovenox 90 mg Route: Sub-Q; Site: left lower abdomen; ea 03:25 Follow up: Response: No adverse reaction ea Disposition: 02:51 Co-signature as Attending Physician, Delbert Kaufman MD. pkl Disposition: 12/05/19 02:55 Hospitalization ordered by Wilfredo Magallanes for Inpatient Admission. Preliminary diagnosis is Syncope. Hypoxia. Pneumonia. Elevated Ttoponin. Chronin renal disease. Strep pharyngitis. - Bed requested for Intensive Care Unit. - Status is Inpatient Admission. ss - Condition is Fair. - Problem is new. - Symptoms are unchanged. Critical care time excluding procedures: 02:52 Critical care time: Bedside Care: 40 minutes. Total time: 40 minutes pkl Signatures: Dispatcher [employer] EDMS Viki Quintanilla RN RN mw Lam, Pin, MD MD pkl Krissy Cerda RN RN ss Germania Benitez RN RN lp1 Page, Bryn, PA PA cp Gonzales, Kira, RN RN ea Corrections: (The following items were deleted from the chart) 00:35 00:09 UA MICROSCOPIC+U.LAB.BRZ ordered. EDMS EDMS 00:36 00:09 Arterial Blood Gas+RC.LAB.BRZ ordered. EDMS EDMS 01:08 00:40 Normal except: WBC 13.4; RBC 5.71; HGB 15.5; HCT 48.6; MCV 85.3; MCHC 31.8; TO% cp 87.2; NEUT A 11.7. cp 03:45 02:55 Hospitalization Ordered by Wilfredo Magallanes MD for Inpatient Admission. Preliminary diagnosis is Syncope. Hypoxia. Pneumonia. Elevated Ttoponin. Chronin renal disease. Bed requested for Intensive Care Unit. Status is Inpatient Admission. Condition is Fair. Problem is new. Symptoms are unchanged. pkl 04:34 03:45 12/05/2019 02:55 Hospitalization Ordered by Wilfredo Magallanes MD for Inpatient pkl Admission. Preliminary diagnosis is Syncope. Hypoxia. Pneumonia. Elevated Ttoponin. Chronin renal disease. Bed requested for [facility] ER HOLD. Status is Inpatient Admission. Condition is Fair. Problem is new. Symptoms are unchanged. 06:09 04:34 12/05/2019 02:55 Hospitalization Ordered by Wilfredo Magallanes MD for Inpatient mw Admission. Preliminary diagnosis is Syncope. Hypoxia. Pneumonia. Elevated Ttoponin. Chronin renal disease. Strep pharyngitis. Bed requested for [facility] ER HOLD. Status is Inpatient Admission. Condition is Fair. Problem is new. Symptoms are unchanged. pkl 08:50 06:09 12/05/2019 02:55 Hospitalization Ordered by Wilfredo Magallanes MD for Inpatient ss Admission. Preliminary diagnosis is Syncope. Hypoxia. Pneumonia. Elevated Ttoponin. Chronin renal disease. Strep pharyngitis. Bed requested for Intensive Care Unit. Status is Inpatient Admission. Condition is Fair. Problem is new. Symptoms are unchanged.
--- NOTE | 2019-12-05 02:55 | ER ---
Nurse's Notes [facility] Name: Viki Martinez Age: 79 yrs Sex: Female : 1940 Arrival Date: 12/04/2019 Time: 23:53 Bed 4 Private MD: Diagnosis: Syncope. Hypoxia. Pneumonia. Elevated Ttoponin. Chronin renal disease. Strep pharyngitis Presentation: 12/03 23:50 Chief complaint: EMS states: Called for patient with witnessed syncope by ; lp1 States patient was sitting at the side of the bed, stated "I don't feel good" and passed out onto bed for about less than 1 minute; On arrval of EMS, patient was altered, combative, O2 at 80% on room air; put on 4L NC. 23:50 Method Of Arrival: EMS: [facility] lp1 23:50 Coronavirus screen: Proceed with normal triage. Patient denies a cough. Patient denies lp1 measured and/or subjective temperature greater than 100.4F prior to today's visit. Patient denies travel on a cruise ship or to a country the [facility] currently lists as an affected area. Patient denies contact with known and/or suspected case of COVID-19. Ebola Screen: No symptoms or risks identified at this time. Initial Sepsis Screen: Does the patient meet any 2 criteria? RR > 20 per min. Altered Mental Status. Does the patient have a suspected source of infection? Yes: Other: unknown. Risk Assessment: Do you want to hurt yourself or someone else? Unable to obtain. Onset of symptoms was December 04, 2019. 23:50 Acuity: ADIEL 2 lp1 Historical: - Allergies: 12/04 00:00 Sulfa (Sulfonamide Antibiotics); lp1 - Home Meds: 00:56 Alphagan P 0.1 % ophthalmic drop 1 drop twice a day [Active]; Travatan Z 0.004 % lp1 ophthalmic drop 1 drop nightly [Active]; aspirin 81 mg Oral TbEC 1 tab once daily [Active]; spironolactone 25 mg Oral tab 2 tabs once daily [Active]; Namzaric 28-10 mg oral CSpX 1 cap once daily [Active]; prednisone 5 mg Oral tab once daily [Active]; levothyroxine 75 mcg tab 1 tab once daily [Active]; Protonix 40 mg Oral TbEC 1 tab once daily [Active]; acetazolamide 125 mg Oral tab once daily [Active]; metolazone 2.5 mg oral tab 1 tab [Active]; cetirizine 10 mg oral tab 1 tab once daily [Active]; - PMHx: 00:00 Alzheimers; Hyperlipidemia; Hypertension; lp1 - PSHx: 00:00 Knee surgery; Rotator cuff repair; lp1 - Immunization history:: Adult Immunizations up to date. - Social history:: Smoking status: Patient denies any tobacco usage or history of. Screenin:32 Abuse screen: Denies threats or abuse. Nutritional screening: No deficits noted. ea Tuberculosis screening: No symptoms or risk factors identified. Fall Risk Fall in past 12 months (25 points). IV access (20 points). Assessment: 00:00 General: Appears uncomfortable, Behavior is agitated. Pain: Unable to use pain scale. ea Patient appears confused. Neuro: Level of Consciousness is awake, alert, Oriented to person. Cardiovascular: Patient's skin is warm and dry. Respiratory: Airway is patent Respiratory effort is even, unlabored, Respiratory pattern is regular, symmetrical. Derm: Skin is dry, Skin is pale, Skin temperature is warm. 00:35 Reassessment: Patient and/or family updated on plan of care and expected duration. Pain ea level reassessed. Pt alert and oriented to self, respirations are tachypneic, pt placed on Venturi mask per respiratory. 01:05 Reassessment: Patient and/or family updated on plan of care and expected duration. Pain ea level reassessed. Pt alert and oriented to self, provider at bedside updating pt and pt's on plan of care. Vital Signs: 12/03 23:50 Pulse Ox 80% on R/A; Weight 104.33 kg (R); lp1 23:50 Pulse Ox 86% on 4 lpm NC; lp1 23:53 BP 148 / 119; Pulse 86; Resp 24; Temp 97.2; Pulse Ox 84% on R/A; ea 12/04 01:51 BP 189 / 170; Pulse 76; Resp 22; Pulse Ox 88% on Venturi mask; ea 02:13 Pulse 90; Resp 20; Pulse Ox 92% ; ea 02:30 BP 180 / 94 (man/reg); Pulse 76; Resp 20; Pulse Ox 91% on Venturi mask; ea 12/03 23:53 pt placed on 4 L of O2 per nasal cannula per provider ea 12/04 01:51 Pt is removing venturi mask and is attempting to remove BP cuff when it goes off ea ED Course: 12/03 23:53 Patient arrived in ED. lp1 23:55 Kira Gonzales, MELISSA is Primary Nurse. ea 23:58 Bryn Roper PA is PHCP. cp 23:58 Delbert Kaufman MD is Attending Physician. cp 23:58 Triage completed. lp1 23:58 Arm band placed on. lp1 12/04 00:01 Patient has correct armband on for positive identification. Bed in low position. Side lp1 rails up X2. air sampling and monitoring on. Pulse ox on. NIBP on. 00:30 Straight cath inserted, using sterile technique, 16 Fr. Specimen obtained. Returned ea cloudy urine. Patient tolerated well. 00:36 Inserted saline lock: 20 gauge in left antecubital area, using aseptic technique. dh4 00:43 Radiology exam delayed due to Patient unable to come to for CT exam at this time. kw1 00:48 XRAY Chest (1 view) In Process Unspecified. EDMS 01:03 Notified Nurse Practitioner and/or Physician Marketing Technology Coordinator of a critical lab result(s), sg Troponin 1.47, C.Jacquelin CABRERA notified. 01:10 Radiology exam delayed due to Asked by Dr. Kaufman to wait before doing CT Head exam - November kw1 also order a CT chest exam. 01:46 CT Head Brain wo Cont In Process Unspecified. EDMS 01:47 CT Chest Wo Con In Process Unspecified. EDMS 02:08 Notified ED physician of a critical lab result(s). [id number] D DIMER reported to . sg 02:31 No provider procedures requiring assistance completed. Patient admitted, IV remains in ea place. 02:32 US Extremity Venous W Compression Sage In Process Unspecified. EDMS 02:53 Wilfredo Magallanes MD is Hospitalizing Provider. pkl 05:18 Cleaned of incontinence. sg Administered Medications: 02:59 Drug: Zosyn 3.375 grams Route: IVPB; Infused Over: 60 mins; Site: left antecubital; ea 04:17 Follow up: Response: No adverse reaction; IV Status: Completed infusion; IV Intake: ea 100ml 03:00 Drug: Lovenox 90 mg Route: Sub-Q; Site: left lower abdomen; ea 03:25 Follow up: Response: No adverse reaction ea Intake: 04:17 IV: 100ml; Total: 100ml. ea Outcome: 02:55 Decision to Hospitalize by Provider. pkl 03:01 Instructed on Family instructed on need for admission, verbalized the ea understanding of instruction 03:10 Admitted to ER Hold. Please see [facility] for further documentation. ea 03:10 Condition: stable 08:50 Patient left the ED. ss Signatures: Dispatcher [employer] EDClive Paulino, RN RN Delbert Garnica MD MD pkl Smirch, Shelby, RN RN Germania Benitez RN RN lp1 Bryn Roper PA PA cp Antunez, Elena, RN RN Gricelda Douglas kw1 Ilya Monge 4 Corrections: (The following items were deleted from the chart) 02:33 02:30 BP 180 / 94; Pulse 76bpm; Resp 20bpm; Pulse Ox 91% Venturi mask; ea ea
[2019-12-05] MEDS ORDERED: IPRATROPIUM BROM 0.5MG/2.5ML NEB PRN (03:08)
[2019-12-05] MEDS ORDERED: ALBUTEROL 2.5 MG/3 ML NEB SOL NEB PRN (03:08)
[2019-12-05 03:30] VITALS: BMI 38.2
[2019-12-05] MEDS: NA CHLORIDE 0.9% 1,000 ML IV SCH ×2 (04:00→17:20)
[2019-12-05] MEDS ORDERED: PIPER/TAZO/NS 3.375gm 3.375 GM/100 ML BAG IVPB SCH ×2 (06:00→12:00)
[2019-12-05] MEDS ORDERED: NA CHLORIDE 0.9% 1,000 ML ONE (06:47)
--- NOTE | 2019-12-05 08:13 | CON ---
Date of Consultation: 12/05/2019 Patient was admitted on 12/05/2019. I saw the patient on 12/05/2019. Reason For Consultation: Syncope. History Of Present Illness: Ms. Martinez is a 79-year-old white woman, she has a history of hypertension , gastroesophageal reflux disease, hypothyroidism, dyslipidemia, and Alzheimer's. She recently has h ad eye surgery and had developed mild altered mental status since then. She has been doing fairly we ll, but apparently yesterday while she was sitting down, she had an episode of syncope witnessed by h er . Prior to the syncope, there were no specific complaints of chest pain or shortness of br eath or nausea or vomiting or diaphoresis. She also had denied PND, orthopnea, pedal edema, or palpi tations. She denied any fever or chills, but her mentioned that she stated that she has just not been feeling well. When she came to the emergency room, Ms. Martinez was very combative with altere d mental status. She was noted to be hypoxic. Extensive workup was in progress. Past Medical History: As stated above. Allergies: NONE. Family History: Noncontributory. Social History: Noncontributory. Review of Systems: Noncontributory. Medications: At home include Norvasc, Lasix, inhalers, Synthroid, potassium, Zaroxolyn, steroid, and Protonix. Physical Examination: Vital Signs: Ms. Brennans blood pressure was 180/88. Oxygen saturation on Ventimask was 90%. General: She was very combative and confused and not responding to verbal commands appropriately. H usband was by bedside. She was fighting with the nurses, refusing IVs and blood drawing. Her pO2 wa s 70. Her pCO2 was 37 and pH was 7.34. HEENT: Overall negative. Neck: Supple without bruit. Chest: Clear. Cardiac: Revealed a regular rhythm and rate. No murmurs, gallops, or rubs. Abdomen: Obese, but benign. Extremities: Revealed no clubbing, cyanosis, or edema. Diagnostic Data: She was strep positive by swab. Her creatinine is 1.75. [place] count [place] 57[address] . Echocardiogram and EKG in April 2018 were fairly unremarkable. She had a D-dimer that was 24,47 6. Her troponin is 1.47. Her BNP was 6795. She appears to have a UTI. Her chest x-ray is pending. Venous Doppler is pending. Chest CT is pending. Head CT is pending. Impression And Plan: Ms. Martinez's most concerning findings is her significant altered mental status an d possible urinary tract infection, positive strep throat, and very elevated D-dimer. We are awaitin g chest x-ray, a venous Doppler, CT of her head and CT of her chest results. This is not an acute co ronary syndrome despite the elevation in troponin and BNP. She is presently on Lovenox, antibiotics and inhalers. I think she is mostly septic. She will need an echocardiogram eventually. Lovenox larson s been initiated just in case there is a pulmonary embolus or venous thrombosis involved with her scooter vated D-dimer. With her creatinine being slightly elevated at 1.75, she is not a candidate for CT an giogram. A V/Q scan may need to be done. Her blood pressure is poorly controlled and we will observ e that for now. Continue her medication. She does have a history of hypothyroidism, gastroesophagea l reflux disease and dyslipidemia. All of those are controlled. Her altered mental status seemed to have taken a much worse turn according to her . I will discuss the case further with Dr. Toshia walden. For now, I agree with antibiotics, Lovenox, inhaler therapy. We will await the studies to be done. Plan an echocardiogram on Saturday. KRISTIE Voice ID: [id number] Report ID: [id number]
[2019-12-05] MEDS ORDERED: ENOXAPARIN 100 MG/ML SYR SQ SCH (09:00)
--- NOTE | 2019-12-05 09:50 | RAD REPORT ---
EXAM DESCRIPTION: RAD - Chest Single View - 12/05/2019 12:48 am CLINICAL HISTORY: SOB COMPARISON: Portable April 2018, portable April 2016 TECHNIQUE: AP portable chest image was obtained 12/05/2019 12:48 am . FINDINGS: Lung volumes are low. Minimal opacification medial right base is probably the affects of l ow lung volumes. Patchy alveolar opacities are present in the mid and lower left lung field. No dense consolidation seen. Left upper lung field is clear. Widened mediastinum noted. Heart and vasculature are normal. No measurable pleural effusion and no pneumothorax. No acute bony abnormality seen. No a cute aortic findings suspected. IMPRESSION: Left greater than right lower lung field hazy alveolar opacities. Early left lung base pneumonia is suspected. Findings can also be seen with prominent atelectasis and early edema.
[2019-12-05] MEDS ORDERED: PNEUMOCOCCAL VACCINE 0.5 ML IMVAC ONE (12:00)
[2019-12-05] MEDS ORDERED: predniSONE 20 MG TAB PO ONE (12:00)
[2019-12-05] MEDS ORDERED: PIPER/TAZO/NS 3.375gm 3.375 GM/100 ML BAG IVPB ONE (12:00)
--- NOTE | 2019-12-05 14:34 | HP ---
Date of Admission: 12/05/2019 Chief Complaint: Shortness of breath and passed out. History Of Present Illness: A 79-year-old female patient who lives at home with her , was eri siddiqi in her normal usual state of health until last 2-3 days. She is not feeling well. Her husba nd reported that she was having tiredness and shortness of breath with any activity including just wa lking 4-5 steps. She would get short of breath and tired and she would have to stand and then walk a gain. This problem just started in last 2-3 days. Did not have any fever, cough, congestion, not co ughing up any mucus. No vomiting. No diarrhea. Yesterday, her appetite was not good. Last night, she walked to the bedroom to go to bed. As she sat down in the bed and all of a sudden, she did not feel good at all. was with her at that time and she passed out and her was there, so he helped her to lay down in the bed, so patient did not have any fall or injury. reports t hat for about a minute to minute and a half, she was not breathing and then spontaneously she came ou t of this spell, started breathing on her own. did not have to provide any sort of intervent ion. She was brought to the emergency room. She was very agitated in the emergency room, confused, and hemodynamically stable, was admitted to intensive care unit. COVID-19 test was done in the emerg ency room and her strep test came back positive. When I saw her she was in ICU and her COVID-19 days results came back negative as well. was with her at bedside. When I saw her, she was tiana biswas in the chair and reports that her condition was much better this time than last 24 hours. Allergies: SULFA CAUSING RASH. Review of Systems: Constitutional: Significant for fatigue. Respiratory: Significant for shortness of breath. WIRE LATHER: Syncopal episode and impaired memory. All other systems reviewed and negative. Past Medical History: Significant for Alzheimer disease, hypothyroidism, renal insufficiency, obstru ctive sleep apnea, chronic respiratory failure with hypoxia, hypertension, hyperlipidemia, Non-STEMI April 30, 2018, diastolic chronic congestive heart failure, diverticulosis, lymphedema of legs, oste oarthritis at multiple sites. Past Surgical History: Cataract surgery, tonsillectomy, appendectomy, shoulder surgery on the right shoulder and bilateral knee surgery. Family History: Father had coronary artery disease. Mother had hypertension and coronary artery dis ease. Sister with hypertension and hyperlipidemia. Social History: Negative for smoking. Use of alcohol negative. Physical Examination: Vital Signs: Temperature 97.4, pulse 75, respiratory rate 19, blood pressure 170/68, oxygen saturati on 90%. General: Patient is lying in bed, awake, alert, but not oriented completely. This is her baseline. HEENT: Head atraumatic, normocephalic. Conjunctivae nonerythematous. Sclerae white. Mouth, no thr ush or edema noted. Ears/Nose, no mass, lesion, discharge noted. Neck: Supple. No JVD, lymph nodes, bruit, thyromegaly noted. Lungs: Bilateral rales noted in lower lung phillips. Not using accessory muscles of respiration. Heart: Normal heart sounds, no murmur or gallop. Abdomen: Soft, bowel sounds normal. No guarding, rigidity, tenderness, mass, hepatosplenomegaly, dis tention, or bruit noted. Extremities: Trace amount of lymphedema of both legs, chronic and unchanged. Skin: No rash, ulcer, cellulitis. Lymphatics: No lymph node enlargement in neck, supraclavicular, infraclavicular region. Neuro: No focal neurological deficit. Chest: Unremarkable. External Genitalia: Deferred. Rectal: Deferred. Laboratory Data: White count 13.4, hemoglobin 15.5, platelets 213. INR 1.13. D-dimer 24,476. Bloo d gas pH 7.34, pCO2 37.9, PO2 70.7 on 50% FiO2. Sodium 137, potassium 3.5, chloride 106, bicarb 20, BUN 33, creatinine 1.75, glucose 147. Liver function tests unremarkable. Troponin 1.47 on the first set, second set 1.46. Procalcitonin less than 0.05, BNP 6798. Lactic acid 2.1. Urinalysis negativ e for nitrite and esterase. Chest x-ray shows left greater than right lower lung field haziness with alveolar opacities. CAT scan of the chest shows mild cardiomegaly, moderate scattered bilateral nicole und-glass lung opacities. CT scan of the head negative for any acute intracranial changes. Venous D oppler of lower extremity done in emergency room, result pending. Impression: 1.Respiratory failure, acute on chronic, with hypoxia. 2.Pneumonia. 3.Syncope. 4.Obstructive sleep apnea. 5.Adrenal insufficiency. 6.Hypothyroidism. 7.Alzheimer disease. 8.Hypertension. 9.Hyperlipidemia. 10.Congestive heart failure, chronic, diastolic. 11.Diverticulosis. 12.Lymphedema. 13.Osteoarthritis, multiple sites. 14.Acute kidney injury. Plan: Admit patient to hospital for further evaluation of one of these problems. Patient is appropr iate for inpatient and is expected to spend 2 midnights in hospital. The patient's condition is stab le at this point. She does not need any ICU monitoring. We will go ahead and transfer her to [facility] floor and transfer order was written. See copy of transfer order for details. Home medications wi ll be continued per order. I will go ahead and give her prednisone 20 mg p.o. x1 dose today and cont inue 20 mg daily starting tomorrow. Continue IV antibiotics, oxygen nebulizer treatment as started. Physical therapy will be consulted. Cardiology and Pulmonary consultations were requested. Patient received 1 dose of Lovenox in the emergency room and will continue Lovenox right now, but once a day instead of every 12 hours considering renal dysfunction. At this point, any suspicion for DVT or pu lmonary embolism is clinically low. She has home oxygen, but about 2 months ago or so, she stopped u sing it as said at the time of her last appointment with Dr. Hernandez, he informed her that s he did not need to continue home oxygen any longer. She does have home oxygen and I have advised her that upon discharge from the hospital, she should be back on her home oxygen the way she was taking it at 2 L/minute. JADYN/MODL Voice ID: [id number]
--- NOTE | 2019-12-05 16:03 | P.CNS ---
Date of Consult: 12/05/19 Reason for Consult: Altered mental status hypoxemia Chief Complaint: Unresponsiveness History of Present Illness: Patient is 70 for 9 years of age nonverbal the niece in been short of breath passed out last night at 10:34 a.m. a min woke up is been confused he has severe end-stage dementia and non compliant with BiPAP uses during the daytime no history of fever chills or cough no prior history of pulmonary complaints Allergies No Known Allergies Allergy (Verified 12/05/19 09:37) Home Medications: Pantoprazole [Protonix Tab*] 40 mg PO DAILY #30 tab 11/02/15 predniSONE [Deltasone*] 5 mg PO DAILY 05/16/16 Cholecalciferol (Vitamin D3) [Vitamin D3] 2,000 unit PO DAILY 04/23/18 Cyanocobalamin [Vitamin B-12*] 1,000 mcg PO DAILY 04/23/18 Fish Oil/Dha/Epa [Fish Oil 1,200 mg Fish Oil] 1 each PO DAILY 04/23/18 Levothyroxine [Synthroid*] 75 mcg PO [id number] 04/23/18 Ubidecarenone/Vit E Acet [Co Q-10 100 mg Softgel] 2 each PO DAILY 04/23/18 Vitamin E 1,000 unit PO DAILY 04/23/18 Brimonidine [Alphagan P 0.15%*] 1 drops EACH EYE BID 04/30/18 Travoprost [Travatan Z] 1 drop OPTH BEDTIME 04/30/18 metOLazone [Zaroxolyn*] 2.5 mg PO EVERY 7TH DAY 04/30/18 Aspirin 1 tab PO DAILY 12/05/19 Azelastine/Fluticasone [Azelastin-Flutic 137-50Mcg Spr] 1 spray IN BID 12/05/19 Cetirizine HCl [Zyrtec] 1 tab PO DAILY 12/05/19 Lactobacillus Acidophilus/Fos [Acidophilus Probiotic Tablet] 1 tab PO DAILY 12/05/19 Memantine HCl/Donepezil HCl [Namzaric 28 mg-10 mg Capsule] 1 cap PO DAILY 12/05/19 Nuedexta 1 cap PO DAILY 12/05/19 Psyllium Husk [Psyllium Fiber] 2 cap PO DAILY 12/05/19 Spironolactone [Aldactone*] 2 tab PO DAILY 12/05/19 acetaZOLAMIDE [Acetazolamide] 1 tab PO DAILY 12/05/19 - Past Medical/Surgical History Diabetic: No -: htn -: HLD -: Mild Alz -: miladis knee replacements -: right rotatorcuff -: Hypertension -: Alzheimer's disease - Family History Sister Medical History: Heart disease, Hypertension, Cancer dad Medical History: Heart disease mom Medical History: Diabetes - Social History Smoking Status: Never smoker Alcohol use: No CD- Drugs: No Caffeine use: Yes Review of Systems Unremarkable Physical Examination Temp Pulse Resp BP Pulse Ox 98.5 F 73 19 124/97 H 94 12/05/19 09:30 12/05/19 09:30 12/05/19 07:00 12/05/19 11:00 12/05/19 11:00 General: Alert, Other (Patient does not respond to command) HEENT: Atraumatic Neck: Supple Respiratory: Clear to auscultation bilaterally Cardiovascular: No edema, Regular rate/rhythm, Normal S1 S2 Gastrointestinal: Normal bowel sounds, Soft and benign Integumentary: Other (Ms.) Neurological: Other (Does not obey command) Laboratory Data (last 24 hrs) 12/05/19 00:09: PT 13.3 H, INR 1.13 12/05/19 00:09: WBC 13.4 H, Hgb 15.5 H, Hct 48.6 H, Plt Count 213 12/05/19 00:09: Sodium 137, Potassium 3.5, BUN 33 H, Creatinine 1.75 H, Glucose 147 H, Magnesium 2.4, Total Bilirubin 1.0, AST 26, ALT 35, Alkaline Phosphatase 85 - Problems (1) Altered mental status Current Visit: Yes Status: Acute Plan: Patient is 79 years of age with a history of advanced dementia admitted with altered mental status transient unresponsiveness obtain and lab findings include if currently elevated troponin increasing BNP white count is mildly elevated chest x-ray nonspecific interstitial changes patient has no fever since admission patient has home oxygen non compliant with BiPAP will consider changing the mass to air fit of 30 no evidence of sepsis history of diastolic dysfunction no evidence of volume overload need to exclude thromboembolism agree with full-dose anticoagulation patient may not cooperate to with V/Q scan of order an echo patient is on antibiotic patient has a mild metabolic acidosis I suspect is from the Diamox she is also on spironolactone metolazone for Stroke although patient is not very cooperative as not understand any commands according to the relatives present at the bedside there is no neurological deficits no problem swallowing continuous pulse ox monitoring
[2019-12-05] MEDS: PIPER/TAZO/NS 3.375gm 3.375 GM/100 ML BAG IVPB SCH (16:11)
--- NOTE | 2019-12-05 17:06 | RAD REPORT ---
EXAM DESCRIPTION: CT - Head Brain Wo Cont - 12/05/2019 3:23 am CLINICAL HISTORY: The patient is 79 years old and is Female; Mental status change;Syncope TECHNIQUE: Axial computed tomography images of the head/brain without intravenous contrast. Sagitt al and coronal reformatted images were created and reviewed. This CT exam was performed using one o r more of the following dose reduction techniques: automated exposure control, adjustment of the mA and/or kV according to patient size, and/or use of iterative reconstruction technique. COMPARISON: No relevant prior studies available. FINDINGS: BRAIN: There is no intracranial hemorrhage, mass effect, or midline shift. There are no extra-axial fluid collections. There is diffuse cerebral atrophy present, consistent with this valente ent's age. There is patchy hypoattenuation of the deep white matter which is non-specific, but most likely owing to chronic small vessel ischemic change in a patient of this age group. VENTRICLES: There is diffuse prominence of the ventricles, which is likely related to central at rophy. BONES/JOINTS: No acute fracture. SOFT TISSUES: Unremarkable. SINUSES: Unremarkable as visualized. No acute sinusitis. MASTOID AIR CELLS: Unremarkable as visualized. No mastoid effusion. ORBITS: Unremarkable as visualized. IMPRESSION: Age-related atrophy and chronic white matter ischemic changes, with no evidence of an a cute intracranial abnormality. Electronically signed by: Reyna Fallon MD 12/05/2019 2:04 AM CDT Due to temporary technical issues with the PACS/Fluency reporting system, reports are being signed by the in house radiologist as a courtesy to ensure prompt reporting. The interpreting radiologist is f ully responsible for the content of the report.
--- NOTE | 2019-12-05 17:10 | RAD REPORT ---
EXAM DESCRIPTION: CT - Thorax Wo Con - 12/05/2019 3:22 am CLINICAL HISTORY: Hypoxia , altered mental status, syncope COMPARISON: None. TECHNIQUE: Chest axial images acquired without contrast. Coronal and sagittal reformats created. Exa m performed according to departmental dose-optimization program which includes automated exposure con trol, adjustment of mA and/or kV according to patient size, and/or use of iterative reconstruction te chnique. FINDINGS: Thoracic aorta shows moderate calcified atherosclerotic plaque. Areas of airway narrowing of central tracheobronchial tree likely representing acquired tracheobronch omalacia. No pleural effusion or pneumothorax. Evaluation of lung parenchyma is more difficult due to respiratory motion artifact. Moderate scattered bilateral ground glass lung opacities. No focal consolidation or lung mass grossly seen. Mild scattered bilateral lung atelectasis and/or scar. Heart size mildly enlarged. No significant pericardial effusion. Small calcified right pulmonary hilar lymph nodes likely represent old granulomatous disease. Mild right hemidiaphragm elevation. Bilateral shoulder DJD. Thoracic spine degenerative changes. IMPRESSION: Evaluation is more difficult due to respiratory motion artifact. This makes detection of small lung nodules very difficult. 1. Mild cardiomegaly. 2. Moderate scattered bilateral ground glass lung opacities. Causes include subsegmental atelectasis, pulmonary edema, and infection. 3. Mild scattered bilateral lung atelectasis and/or scar. 4. Other findings described above. Electronically signed by: Abdias Cool MD 12/05/2019 2:13 AM CDT Due to temporary technical issues with the PACS/Fluency reporting system, reports are being signed by the in house radiologist as a courtesy to ensure prompt reporting. The interpreting radiologist is f ully responsible for the content of the report.
[2019-12-05] MEDS ORDERED: WATER FOR INJ,STERILE 10 ML IM PRN (20:40)
[2019-12-05] MEDS ORDERED: ZIPRASIDONE MESYLA 20 MG/VIAL IM PRN (20:40)
[2019-12-05] MEDS: AZELASTINE IN SCH (21:00)
[2019-12-05] MEDS: BRIMONIDINE TARTRATE 0.15% 5 ML OPTH SCH (21:00)
[2019-12-05] MEDS: FLUTICASONE IN SCH (21:00)
[2019-12-05] MEDS: TRAVOPROST 0.004% 2.5ML OPTH OPTH SCH (21:00)
[2019-12-05] MEDS ORDERED: TRAVOPROST 0.004% 2.5ML OPTH OPTH SCH (21:00)
[2019-12-06] MEDS: PIPER/TAZO/NS 3.375gm 3.375 GM/100 ML BAG IVPB SCH ×3 (00:43→16:05)
[2019-12-06] MEDS: NA CHLORIDE 0.9% 1,000 ML IV SCH ×2 (00:43→06:40)
[2019-12-06] MEDS: LEVOTHYROXINE SOD 0.05 MG TABLET PO SCH (06:35)
[2019-12-06 06:36] LABS: Absolute Lymphocytes (CBC) 1.6 K/uL (0.7-4.9); Basophils % 0.9 % (0-1.3); Hematocrit 44.8 % (36.0-45.0); Lymphocytes % 14.4 % (15.3-44.8); MPV 8.6 fL (7.6-11.3)
[2019-12-06 06:39] LABS: Potassium 3.5 mmol/L (3.5-5.1)
[2019-12-06] MEDS ORDERED: ACETAZOLAMIDE PO SCH (09:00)
[2019-12-06] MEDS: AZELASTINE IN SCH ×2 (09:00→21:00)
[2019-12-06] MEDS ORDERED: HOME MED 1 EA UNK (Cholecalciferol (Vitamin D3) [Vitamin D3] 2,000 UNIT) PO SCH (09:00)
[2019-12-06] MEDS: PSYLLIUM HUSK PO SCH (09:00)
[2019-12-06] MEDS ORDERED: HOME MED 1 EA UNK (Cetirizine Hcl [Zyrtec] 1 TAB) PO SCH (09:00)
[2019-12-06] MEDS ORDERED: FOS PO SCH (09:00)
[2019-12-06] MEDS: Memantine Hcl/Donepezil Hcl [Namzaric 28 Mg-10 Mg Capsule] PO SCH (09:00)
[2019-12-06] MEDS ORDERED: LACTOBACILLUS ACIDOPHILUS PO SCH (09:00)
[2019-12-06] MEDS: FLUTICASONE IN SCH ×2 (09:00→21:00)
[2019-12-06] MEDS: ENOXAPARIN 100 MG/ML SYR SQ SCH (09:37)
[2019-12-06] MEDS: CYANOCOBALAMIN 1,000 MCG TAB PO SCH (09:38)
[2019-12-06] MEDS: VITAMIN D 1000 UNIT TAB PO SCH (09:38)
[2019-12-06] MEDS: LACTOBACILLUS/ACIDOPHILUS TAB PO SCH (09:38)
[2019-12-06] MEDS: CETIRIZINE HCL 5 MG TABLET PO SCH (09:38)
[2019-12-06] MEDS: PANTOPRAZOLE 40MG TABLET PO SCH (09:38)
[2019-12-06] MEDS: ASPIRIN 81 MG CHEWABLE TABLET PO SCH (09:38)
[2019-12-06] MEDS: predniSONE 20 MG TAB PO SCH (09:39)
[2019-12-06] MEDS: BRIMONIDINE TARTRATE 0.15% 5 ML OPTH SCH ×2 (09:42→21:38)
[2019-12-06] MEDS: acetaZOLAMIDE 250 MG TAB PO SCH (09:44)
--- NOTE | 2019-12-06 11:11 | RAD REPORT ---
EXAM DESCRIPTION: NM - Vent Perfusion VQ Scan - 12/06/2019 7:43 am CLINICAL HISTORY: Rule out pulmonary emboli Chest pain, shortness of breath COMPARISON: Vent Perfusion VQ Scan dated 04/30/2018; Thorax Wo Con dated 12/05/2019; Chest Single View dated 12/05/2019; Extrem Venous W Compress Sage dated 12/05/2019 TECHNIQUE: 12.1mCi Xe-133 gas inhaled and 7.2mCi Tc-MAA IV. Planar ventilation scan was performed in posterior projection after Xe-133 gas inhalation (wash-in, e quilibrium, and wash-out phases) followed by perfusion scan with Tc-MAA IV in multiple projections. Examination is correlated with recent chest radiograph. FINDINGS: Normal ventilation with mild air-trapping. Multiple bilateral segmental mismatched defects are present. IMPRESSION: High probability of pulmonary embolism. Findings were discussed with Dr. Hernandez on 12/06/2019
--- NOTE | 2019-12-06 12:32 | PN ---
Date of Progress Note: 12/06/2019 Subjective: Patient was seen this morning for followup. No new complaints, problems reported. She was sitting in the chair. Her was with her. Last night, she had lot of agitation and she wa s given 1 dose of Geodon 10 mg IM after that. She was able to sleep well and [facility] woke up couple of times, but got adequate amount of rest. This morning, she was calm, hap py, smiling. Denied any specific complaints. was with her at bedside. Objective: Vital Signs: Reviewed. HEENT: Unremarkable. Lungs: Clear to auscultation. No rhonchi or rales. Cardiac: Heart sounds normal. Abdomen: Soft, bowel sounds normal. No guarding, rigidity, tenderness, or distention. Extremities: No leg edema. Laboratory Data: White count 11.1, hemoglobin 14.1, platelets 172. Sodium 143, potassium 3.5, chlor kalee 112, bicarb 24, BUN 33, creatinine 1.61, glucose 81. Impression: 1.Chronic respiratory failure with hypoxia, with acute exacerbation. 2.Pneumonia. 3.Rule out pulmonary embolism. 4.Chronic diastolic congestive heart failure. 5.Alzheimer disease. Plan: We will continue current medications. Overall, condition is stable. We will continue to foll ow with staff training and development manager and manager business information. Continue Lovenox per order and I will see her tomorrow for followup. We will repeat blood work tomorrow morning and a chest x-ray. JADYN/MODL Voice ID: [id number] Report ID: [id number]
--- NOTE | 2019-12-06 13:02 | PN ---
Ms. Martinez is a patient who came in with syncope, hypertension, altered mental status. She has a histo ry of dyslipidemia, gastroesophageal reflux disease. Her laboratory evaluation yesterday revealed a very elevated D-dimer and elevated troponin, BNP, white count, creatinine with hypoxia. So far, she has had an extensive workup, but her chest x-ray showed some alveolar opacities, possibly early left lung pneumonia with some atelectasis. She has had a CT of her head, which showed some chronic ischem ic changes. She had a chest CT that showed some mild cardiomegaly, moderate bilateral ground-glass l deep opacities, some atelectasis. A venous Doppler and a V/Q scan are still pending. Discussions hav e been made with Dr. Hernandez as well as Dr. Magallanes. Patient's most likely reason for syncope is hypot ension secondary to infectious process and dehydration. She is on antibiotics, inhalers, Lovenox. S he is improving. Her last O2 saturation was 94% on nasal cannula of 2 L. Her last creatinine has im proved to 1.61. Her white count has improved to 11.1. I would continue her present regimen. Echoca rdiogram is pending for tomorrow. This will hopefully help us determine if she has any pulmonary hyp ertension, right ventricular dilatation, or congestive heart failure. I will discuss the case with Jarvis Magallanes and Dr. Bob after the echocardiogram tomorrow. JACKSON/AFSANEH Voice ID: [id number] Report ID: [id number]
--- NOTE | 2019-12-06 16:43 | P.PN ---
Subjective Date of Service: 12/06/19 Chief Complaint: Pulmonary embolus Patient's condition is stable no respiratory distress V/Q scan high probability Review of Systems is unable to be obtained Physical Examination - Vital Signs Temperature: 96.2 F Blood Pressure: 101/69 Pulse: 54 Respirations: 19 Pulse Ox (%): 92 - Physical Exam General: Other (Patient will respond on stimulation no spontaneous conversation) Respiratory: Clear to auscultation bilaterally Cardiovascular: No edema, Normal S1 S2 - Studies Microbiology Data (last 24 hrs): 12/05/19 00:09 Blood - Blood Blood Culture Gram Stain - Final 12/05/19 00:09 Blood - Blood Gram Stain - Final Assessment & Plan - Problems (Diagnosis) (1) Altered mental status Current Visit: Yes Status: Acute Plan: No change patient has dementia (2) Pulmonary embolism Current Visit: Yes Status: Acute Plan: Patient's V/Q scan is high probability suggestive of pulmonary embolism can change to p.o. Eliquis all Xasilto Toby need lifelong anticoagulation patient's vital signs are stable in Dc antibiotics no evidence of sepsis patient is on Lovenox Qualifiers: Acute cor pulmonale presence: unspecified Discharge Plan: Home Plan to discharge in: 48 Hours
--- NOTE | 2019-12-06 19:17 | RAD REPORT ---
EXAM DESCRIPTION: US - Extrem Venous W Compress Sage - 12/06/2019 7:08 pm CLINICAL HISTORY: rule out DVT Bilateral leg edema and swelling. COMPARISON: Extrem Venous W Compress Sage dated 12/05/2019; Vent Perfusion VQ Scan dated 12/06/2019 TECHNIQUE: Real-time sonographic interrogation of the left and right lower extremity deep venous sys tems was performed. FINDINGS: Thrombus is suspected in the left femoral vein to the left popliteal vein. No right lower extremity DVT. IMPRESSION: Positive for left-sided DVT from the femoral vein to the popliteal vein.
[2019-12-06] MEDS: TRAVOPROST 0.004% 2.5ML OPTH OPTH SCH (21:38)
--- NOTE | 2019-12-06 21:54 | RAD REPORT ---
EXAM DESCRIPTION: US - Extrem Venous W Compress Sage - 12/05/2019 2:32 am
[2019-12-07] MEDS: PIPER/TAZO/NS 3.375gm 3.375 GM/100 ML BAG IVPB SCH ×2 (00:47→09:55)
[2019-12-07] MEDS: LEVOTHYROXINE SOD 0.05 MG TABLET PO SCH (05:45)
[2019-12-07] MEDS: NA CHLORIDE 0.9% 1,000 ML IV SCH ×2 (06:00→09:20)
[2019-12-07 08:25] LABS: Absolute Lymphocytes (CBC) 1.5 K/uL (0.7-4.9); Basophils % 0.7 % (0-1.3); Hematocrit 45.2 % (36.0-45.0); Lymphocytes % 17.3 % (15.3-44.8); MPV 8.2 fL (7.6-11.3); RBC Red Blood Cell Count 5.18 M/uL (3.86-4.86)
[2019-12-07 08:38] LABS: Potassium 3.6 mmol/L (3.5-5.1)
[2019-12-07] MEDS: PSYLLIUM HUSK PO SCH (09:00)
[2019-12-07] MEDS: FLUTICASONE IN SCH (09:00)
[2019-12-07] MEDS: AZELASTINE IN SCH (09:00)
[2019-12-07] MEDS: predniSONE 20 MG TAB PO SCH (09:55)
[2019-12-07] MEDS: ASPIRIN 81 MG CHEWABLE TABLET PO SCH (09:55)
[2019-12-07] MEDS: CYANOCOBALAMIN 1,000 MCG TAB PO SCH (09:56)
[2019-12-07] MEDS: LACTOBACILLUS/ACIDOPHILUS TAB PO SCH (09:56)
[2019-12-07] MEDS: CETIRIZINE HCL 5 MG TABLET PO SCH (09:56)
[2019-12-07] MEDS: acetaZOLAMIDE 250 MG TAB PO SCH (09:56)
[2019-12-07] MEDS: PANTOPRAZOLE 40MG TABLET PO SCH (09:57)
[2019-12-07] MEDS: ENOXAPARIN 100 MG/ML SYR SQ SCH (09:57)
[2019-12-07] MEDS: Memantine Hcl/Donepezil Hcl [Namzaric 28 Mg-10 Mg Capsule] PO SCH (09:57)
[2019-12-07] MEDS: BRIMONIDINE TARTRATE 0.15% 5 ML OPTH SCH (09:58)
[2019-12-07] MEDS: VITAMIN D 1000 UNIT TAB PO SCH (10:04)
[2019-12-07 10:20] VITALS: O2SAT 92
[2019-12-07 10:59] VITALS: BP 120/80
[2019-12-07] MEDS ORDERED: METOPROLOL XL 25 MG TAB PO SCH (11:00)
[2019-12-07 14:27] VITALS: TEMP 97
--- NOTE | 2019-12-08 00:03 | PN ---
Ms. Martinez had been followed for an episode of syncope, hypotension, altered mental status. She has a history of hypertension. She had been on antibiotics, inhalers, and Lovenox. She had an elevated D- dimer, BNP, troponin elevated creatinine, and white count. Her workup eventually showed a pulmonary embolus. The case was discussed with Dr. Mgaallanes and Dr. Hernandez. She will be going home with stacy bee or Linnette. Preferably lifelong anticoagulation treatment. The patient will be going home [facility]. Echocardiogram was never done. It may be reasonable to do one as an outpatient. JACKSON/AFSANEH Voice ID: [id number] Report ID: [id number]
--- NOTE | 2019-12-08 03:48 | DS ---
Date of Discharge: 12/07/2019 History Of Present Illness: Patient was seen this morning. Physical Examination: HEENT: Unremarkable. Lungs: Clear to auscultation. Heart: Sounds normal. Abdomen: Soft. Bowel sounds normal. No guarding, rigidity, tenderness, distention. Extremities: No leg edema. Discharge Medications And Instructions: Continue all prior home medication except stop aspirin and s tart following new medications: 1.Levofloxacin 500 mg p.o. daily for 1 week. 2.Metoprolol succinate 25 mg 1 tablet by mouth p.o. daily in morning. 3.Eliquis 5 mg, take 2 tablets by mouth 2 times a day for 1 week and then 1 tablet by mouth 2 times a day. 4.Follow up at my office, follow up with Dr. Holland, and follow up with Dr. Hernandez in 1 to 2 week s. 5.Use oxygen all the time at 2 L/minute. Laboratory Data: Labs done during this hospitalization includes urine culture growing klebsiella. L ast chemistry from today, results reviewed. Yesterday, sodium 143, potassium 3.5, chloride 112, bica rb 24, BUN 33, creatinine 1.61, glucose 81. Yesterday, white count 11.1, hemoglobin 14.1, platelets 172. Hospital Course: A 79-year-old pleasant female patient, admitted to the hospital with shortness of b reath and after she had a syncopal episode at home. Please see dictated H and P for more information . After patient was evaluated in emergency room, she was initially admitted to ICU. She stayed in [facility] for a short period of time and after I saw her, she was transferred out of ICU to regular room. S he was hemodynamically stable. She was started on Lovenox injection upon admission to the hospital. Venous Doppler of both lower extremity was ordered to be done on the day of admission, but she was v amirah agitated and not cooperative, so Doppler study was not done up until yesterday. She also had a V /Q scan done yesterday. V/Q scan came back showing high probability of pulmonary embolism. Venous D oppler showed evidence of acute DVT of lower extremity. Patient has received anticoagulation therapy in form of Lovenox from the time of admission. She also received antibiotic for pneumonia. Her COV ID-19 test came back negative. Her condition remained stable on medical floor. She did receive 1 do se of Geodon as she was agitated and that actually helped her to get some sleep at night time. Beba portillo ambulates with assistance and uses walker, but has limited ambulation. With this recent acute DVT of leg and pulmonary embolism, she will need to be on lifelong anticoagulation as recommended by Dr. Hernandez. We will consider to lower dose to 2.5 mg 2 times a day as maintenance therapy after first 3 months of anticoagulation therapy is given to her at a usual regular dose. The patient's was made aware of the risk of bleeding as a complication from use of anticoagulation therapy and if a ny such problem happens or head injury, then to report back to emergency room for further evaluation. Final Diagnoses: 1.Respiratory failure, acute on chronic, with hypoxia. 2.Pneumonia. 3.Pulmonary embolism. 4.Deep venous thrombosis, left leg. 5.Syncope. 6.Obstructive sleep apnea. 7.Urinary tract infection. 8.Adrenal insufficiency. 9.Hypothyroidism. 10.Hypertension. 11.Hyperlipidemia. 12.Congestive heart failure, chronic, diastolic. 13.Diverticulosis. 14.Lymphedema, legs. 15.Osteoarthritis, multiple sites. 16.Acute kidney injury. JADYN/MODL Voice ID: [id number] Report ID: [id number]
--- NOTE | 2019-12-09 07:25 | EKG ---
Test Date: 2019-12-07 Test Time: 07:10:23 Core Dipper: ZI MEASUREMENT RESULTS: Intervals: Rate: 109 MN: QRSD: 104 QT: 416 QTc: 560 [place]: P: MN: QRS: 26 T: 161 INTERPRETIVE STATEMENTS: Atrial fibrillation with rapid ventricular response Possible Anterolateral infarct, age undetermined Abnormal ECG Compared to ECG 04/30/2018 07:20:25 Myocardial infarct finding now present Sinus rhythm no longer present Sinus arrhythmia no longer present ST (T wave) deviation no longer present Electronically Signed On 12-09-19 07:23:13 CDT by Tato Holland
== END 2019-12-07 13:52 | disposition home or self-care (01) | DRG 193 ==
LOC: ER 23:52 → ERHOLD 12-05 03:07 → 3RD-ICU 12-05 07:44 → 2ND 12-05 13:04
PROVIDERS: ADMIT Internal Medicine; ATTEND Internal Medicine
DX: J18.9 Pneumonia, unspecified organism (principal); I26.99 Other pulmonary embolism without acute cor pulmonale; J96.21 Acute and chronic respiratory failure with hypoxia; I50.32 Chronic diastolic (congestive) heart failure; E27.40 Unspecified adrenocortical insufficiency; N17.9 Acute kidney failure, unspecified; E87.2 Acidosis; N39.0 Urinary tract infection, site not specified; I82.412 Acute embolism and thrombosis of left femoral vein; I82.432 Acute embolism and thrombosis of left popliteal vein; Z88.1 Allergy status to other antibiotic agents; E78.5 Hyperlipidemia, unspecified; I25.2 Old myocardial infarction; I11.0 Hypertensive heart disease with heart failure; Z20.828 Contact with and (suspected) exposure to other viral communicable diseases; G47.33 Obstructive sleep apnea (adult) (pediatric); E03.9 Hypothyroidism, unspecified; G30.9 Alzheimer's disease, unspecified; F02.80 Dementia in other diseases classified elsewhere, unspecified severity, without behavioral disturbance, psychotic disturbance, mood disturbance, and anxiety; K57.90 Diverticulosis of intestine, part unspecified, without perforation or abscess without bleeding; I89.0 Lymphedema, not elsewhere classified; M19.90 Unspecified osteoarthritis, unspecified site; Z99.81 Dependence on supplemental oxygen; K21.9 Gastro-esophageal reflux disease without esophagitis; Z79.890 Hormone replacement therapy; Z79.899 Other long term (current) drug therapy; Z79.82 Long term (current) use of aspirin; Z79.52 Long term (current) use of systemic steroids; Z91.19 Patient's noncompliance with other medical treatment and regimen; Z96.653 Presence of artificial knee joint, bilateral; I95.9 Hypotension, unspecified; E86.0 Dehydration
CPT/HCPCS: 36415; 51702; 70450; 71045; 71250; 78582; 80048; 80076; 81003; 81015; 82805; 82947; 83605; 83735; 83880; 84145; 84484; 85025; 85379; 85610; 87040; 87077; 87081; 87086; 87088; 87186; 87205; 87804; 90471; 90670; 93005; 93970; 94760; 96365; 96372; 97161; 99285; A9540; A9558; J1650; J2543; J3486; J7030; J7512